=== PATIENT | female | born 1935 | race African-American/Black ===

== ENCOUNTER 2016-10-28 15:14 | Emergency (ER) | payer MEDICARE, BC ==
[~2016-10-28] VITALS: Ht 162.6 cm; Wt 80.0 kg
[~2016-10-28 15:14] MED LIST: ALLO300T2 PO; ASC250 PO; ATOR10TA69 PO; CYAN10009 PO; DIAZ5TAB4 PO; DOCU-138 PO; ERGO500043 PO; FERR-63 PO; FLUT1DIS3 IH; FLUTICASONE PROP NS; FURO80TA3 PO; HYDR-4094 PO; IRBE300T42 PO; ISOS60TA4 PO; METO5TAB69 PO; NITR0.4T3 SL; NITR12SP6 SL; OMEP20CA10 PO; POTA-9 PO; PRO AIR INH; RENAVITE PO; VERA240C2 PO; [UNRECOGNIZED DRUG - CODE] SQ
[2016-10-28 17:08] VITALS: BP 109/61
== END 2016-10-28 17:09 | disposition home or self-care (01) ==
LOC: ER 16:15
DX: M48.07 Spinal stenosis, lumbosacral region (principal); Z88.6 Allergy status to analgesic agent; Z79.899 Other long term (current) drug therapy; I11.0 Hypertensive heart disease with heart failure; I50.9 Heart failure, unspecified
CPT/HCPCS: 99284

== ENCOUNTER 2017-02-17 10:33 | Inpatient (IN) | payer MEDICARE, BC ==
[~2017-02-17] VITALS: Ht 167.6 cm; Wt 78.0 kg
[~2017-02-17 10:33] MED LIST changes: +ERGO500013 PO; -ERGO500043 PO; -NITR0.4T3 SL; +NITR0.4T49 SL
[2017-02-17 15:45] LABS: BASOPHILS % 0.8 % (0.0-2.0); EOSINOPHILS % 2.7 % (0.0-5.0); HEMATOCRIT. 30.1 % (36.0-48.0); LYMPHOCYTES % 17.9 % (20.0-50.0); MEAN CORPUSCULAR HEMOGLOBIN 22.4 pg (28.0-32.0); MEAN CORPUSCULAR VOLUME 74.8 fL (81.0-99.0); MEAN PLATELET VOLUME 9.3 fl (7.4-10.4); MONOCYTES % 14.9 % (2.0-8.0); NEUTROPHILS % 63.7 % (40.0-76.0); PLATELET 160 x1000/uL (130-400); RED BLOOD CELL COUNT 4.02 mill/uL (4.2-5.4); RED CELL DISTRIBUTION WIDTH 16.1 % (11.6-14.6)
[2017-02-17 15:47] LABS: CLARITY URINE CLEAR (CLEAR); COLOR URINE YELLOW (YELLOW); GLUCOSE URINE NEGATIVE (NEGATIVE); KETONES URINE NEGATIVE (NEGATIVE); LEUKOCYTE ESTERASE URINE 2+ (NEGATIVE); NITRITE URINE NEGATIVE (NEGATIVE); OCCULT BLOOD URINE NEGATIVE (NEGATIVE); PH URINE 5.5 (4.5-8.0); PROTEIN URINE 2+ (NEGATIVE); SPECIFIC GRAVITY URINE 1.017 (1.005-1.030); UROBILINOGEN URINE 0.2 E.U./dL (0.2-1.0)
[2017-02-17 16:02] LABS: *AMPHETAMINES SCREEN URINE NEGATIVE (NEGATIVE); *BARBITURATES SCREEN URINE NEGATIVE (NEGATIVE); *BENZODIAZEPINES SCREEN URINE PRESUMTIVE POSITIVE (NEGATIVE); *COCAINE SCREEN URINE NEGATIVE (NEGATIVE); CANNABINOID URINE SCREEN NEGATIVE (NEGATIVE); METHADONE URINE SCREEN NEGATIVE (NEGATIVE); OPIATES URINE SCREEN PRESUMTIVE POSITIVE (NEGATIVE); PHENCYCLIDINE URINE SCREEN NEGATIVE (NEGATIVE)
[2017-02-17 16:07] LABS: CARBON DIOXIDE 28 mEq/L (21-32); CHLORIDE 113 mEq/L (98-107); TROPONIN I 0.25 ng/mL (0.00-0.04)
[2017-02-17] MEDS ORDERED: SULFAMETHOXAZOLE/TRIMETHOPRIM 800/160MG TABLET PO ONE (18:30)
[2017-02-17 20:50] VITALS: BP 164/75
[2017-02-18] VITALS: BP 164/75
[2017-02-18 00:24] VITALS: BP 179/88
[2017-02-18 04:00] VITALS: BP 173/94
[2017-02-18 06:08] LABS: BASOPHILS % 0.8 % (0.0-2.0); EOSINOPHILS % 3.3 % (0.0-5.0); HEMATOCRIT. 29.6 % (36.0-48.0); HEMOGLOBIN. 8.9 g/dL (12.0-16.0); LYMPHOCYTES % 15.5 % (20.0-50.0); MEAN CORPUSCULAR HEMOGLOBIN 22.4 pg (28.0-32.0); MEAN CORPUSCULAR VOLUME 74.6 fL (81.0-99.0); MEAN PLATELET VOLUME 9.7 fl (7.4-10.4); MONOCYTES % 13.4 % (2.0-8.0); PLATELET 172 x1000/uL (130-400); RED BLOOD CELL COUNT 3.97 mill/uL (4.2-5.4)
[2017-02-18 06:40] LABS: TROPONIN I 0.16 ng/mL (0.00-0.04)
[2017-02-18] MEDS: OMEPRAZOLE 20MG CAPSULE EXTENDED RELEASE PO SCH (07:40)
[2017-02-18 07:57] LABS: VITAMIN B12 SERUM 958 pg/mL (211-911)
[2017-02-18 08:00] VITALS: BP 169/84
[2017-02-18] MEDS ORDERED: BUDESONIDE 0.5MG/2ML NEB HHN SCH (08:00)
[2017-02-18] MEDS ORDERED: ALBUTEROL (0.083%) 2.5MG/3ML NEB HHN SCH (08:00)
[2017-02-18] MEDS ORDERED: VERAPAMIL HCL 180MG ER TABLET PO SCH (09:00)
[2017-02-18] MEDS ORDERED: FLUTICASONE/VILANTEROL 200-25 BLST.W.DEV ORI SCH ×2 (09:00→13:00)
[2017-02-18] MEDS: FUROSEMIDE 40MG/4ML VIAL IVP SCH (09:49)
[2017-02-18] MEDS: LOSARTAN POTASSIUM 100 MG TABLET PO SCH (09:49)
[2017-02-18] MEDS: ISOSORBIDE MONONITRATE 60MG TABLET SR 24HR PO SCH (09:51)
[2017-02-18 12:00] VITALS: BP 143/76
[2017-02-18] MEDS ORDERED: NITROGLYCERIN 0.4MG TABLET SL SL PRN ×2 (13:00)
[2017-02-18] MEDS ORDERED: DOCUSATE SODIUM 100MG CAPSULE PO PRN (13:00)
[2017-02-18] MEDS ORDERED: LOSARTAN POTASSIUM 100 MG TABLET PO SCH (13:00)
[2017-02-18] MEDS ORDERED: ISOSORBIDE MONONITRATE 60MG TABLET SR 24HR PO SCH (13:00)
[2017-02-18] MEDS ORDERED: FUROSEMIDE 40MG/4ML VIAL IVP SCH (13:00)
[2017-02-18] MEDS ORDERED: OMEPRAZOLE 20MG CAPSULE EXTENDED RELEASE PO SCH (13:00)
[2017-02-18] MEDS ORDERED: ALBUTEROL 6.7GM HFA INHALER ORI PRN (13:00)
[2017-02-18 16:00] VITALS: BP 126/68
[2017-02-18] MEDS: FOLIC ACID/VITAMIN B COMP W-C TABLET PO SCH (18:01)
[2017-02-18] MEDS: ALLOPURINOL 100 MG TABLET PO SCH (18:01)
[2017-02-18] MEDS: VERAPAMIL HCL 180MG ER TABLET PO SCH (20:03)
[2017-02-18] MEDS: ATORVASTATIN CALCIUM 10MG TABLET PO SCH (20:03)
[2017-02-18] MEDS: HYDROCODONE/ACETAMINOPHEN 10/325MG TABLET PO PRN (22:25)
[2017-02-19] VITALS: BP 137/64
[2017-02-19] MEDS: ALBUTEROL (0.083%) 2.5MG/3ML NEB HHN SCH ×4 (02:05→20:38)
[2017-02-19 04:00] VITALS: BP 124/63
[2017-02-19] MEDS: OMEPRAZOLE 20MG CAPSULE EXTENDED RELEASE PO SCH (06:21)
[2017-02-19 06:43] LABS: BASOPHILS % 0.5 % (0.0-2.0); EOSINOPHILS % 3.4 % (0.0-5.0); HEMATOCRIT. 27.4 % (36.0-48.0); HEMOGLOBIN. 8.4 g/dL (12.0-16.0); MEAN CORPUSCULAR HEMOGLOBIN 22.7 pg (28.0-32.0); MEAN CORPUSCULAR VOLUME 74.5 fL (81.0-99.0); MEAN PLATELET VOLUME 9.8 fl (7.4-10.4); MONOCYTES % 13.1 % (2.0-8.0); PLATELET 155 x1000/uL (130-400); RED BLOOD CELL COUNT 3.68 mill/uL (4.2-5.4); RED CELL DISTRIBUTION WIDTH 16.1 % (11.6-14.6)
[2017-02-19 06:51] LABS: CREATINE KINASE MB FRACTION 0.5 ng/mL (0.5-3.6)
[2017-02-19 08:00] VITALS: BP 118/64
[2017-02-19] MEDS: LOSARTAN POTASSIUM 100 MG TABLET PO SCH (09:00)
[2017-02-19] MEDS ORDERED: VERAPAMIL HCL 180MG ER TABLET PO SCH (09:00)
[2017-02-19] MEDS: VERAPAMIL HCL 180MG ER TABLET PO SCH ×2 (09:00→20:16)
[2017-02-19] MEDS: ISOSORBIDE MONONITRATE 60MG TABLET SR 24HR PO SCH (09:00)
[2017-02-19] MEDS: FUROSEMIDE 40MG/4ML VIAL IVP SCH (09:00)
[2017-02-19] MEDS: FOLIC ACID/VITAMIN B COMP W-C TABLET PO SCH (10:36)
[2017-02-19] MEDS: ALLOPURINOL 100 MG TABLET PO SCH (10:36)
[2017-02-19 12:00] VITALS: BP 112/61
[2017-02-19] MEDS: HYDROCODONE/ACETAMINOPHEN 10/325MG TABLET PO PRN (13:34)
[2017-02-19 16:00] VITALS: BP 109/61
[2017-02-19 20:00] VITALS: BP 137/64
[2017-02-19] MEDS: ATORVASTATIN CALCIUM 10MG TABLET PO SCH (20:15)
[2017-02-20] VITALS: BP 131/60
[2017-02-20] MEDS: ALBUTEROL (0.083%) 2.5MG/3ML NEB HHN SCH ×4 (02:43→21:39)
[2017-02-20 04:00] VITALS: BP 146/73
[2017-02-20] MEDS: OMEPRAZOLE 20MG CAPSULE EXTENDED RELEASE PO SCH (06:21)
[2017-02-20 07:18] LABS: BASOPHILS % 0.5 % (0.0-2.0); EOSINOPHILS % 3.5 % (0.0-5.0); HEMATOCRIT. 28.5 % (36.0-48.0); HEMOGLOBIN. 8.7 g/dL (12.0-16.0); LYMPHOCYTES % 18.1 % (20.0-50.0); MEAN CORPUSCULAR HEMOGLOBIN 22.6 pg (28.0-32.0); MEAN CORPUSCULAR VOLUME 74.3 fL (81.0-99.0); MEAN PLATELET VOLUME 10.1 fl (7.4-10.4); MONOCYTES % 11.7 % (2.0-8.0); NEUTROPHILS % 66.2 % (40.0-76.0); PLATELET 153 x1000/uL (130-400); RED BLOOD CELL COUNT 3.84 mill/uL (4.2-5.4); RED CELL DISTRIBUTION WIDTH 16.3 % (11.6-14.6)
[2017-02-20 08:00] VITALS: BP 154/77
[2017-02-20] MEDS: ISOSORBIDE MONONITRATE 60MG TABLET SR 24HR PO SCH (09:00)
[2017-02-20] MEDS: LOSARTAN POTASSIUM 100 MG TABLET PO SCH (09:00)
[2017-02-20] MEDS: FOLIC ACID/VITAMIN B COMP W-C TABLET PO SCH (09:08)
[2017-02-20] MEDS: VERAPAMIL HCL 180MG ER TABLET PO SCH ×2 (09:09→21:32)
[2017-02-20] MEDS: ALLOPURINOL 100 MG TABLET PO SCH (09:16)
[2017-02-20] MEDS: FUROSEMIDE 40MG/4ML VIAL IVP SCH (09:21)
[2017-02-20] MEDS: HYDROCODONE/ACETAMINOPHEN 10/325MG TABLET PO PRN (11:56)
[2017-02-20 12:00] VITALS: BP 151/70
[2017-02-20 16:00] VITALS: BP 135/64
[2017-02-20] MEDS ORDERED: ALBUTEROL (0.083%) 2.5MG/3ML NEB HHN PRN (19:30)
[2017-02-20 20:00] VITALS: BP 143/61
[2017-02-20] MEDS ORDERED: EPOETIN ALFA 10000UNITS/ML VIAL SUBCUT SCH (21:00)
[2017-02-20] MEDS: ATORVASTATIN CALCIUM 10MG TABLET PO SCH (21:32)
[2017-02-21] VITALS: BP 131/73
[2017-02-21] MEDS: ALBUTEROL (0.083%) 2.5MG/3ML NEB HHN SCH ×4 (00:52→20:59)
[2017-02-21 04:00] VITALS: BP 124/73
[2017-02-21 07:19] LABS: BASOPHILS % 0.7 % (0.0-2.0); EOSINOPHILS % 4.3 % (0.0-5.0); HEMOGLOBIN 8.3 g/dL (12.0-16.0); HEMOGLOBIN. 8.3 g/dL (12.0-16.0); LYMPHOCYTES % 19.4 % (20.0-50.0); MEAN CORPUSCULAR HEMOGLOBIN 22.7 pg (28.0-32.0); MEAN CORPUSCULAR VOLUME 73.5 fL (81.0-99.0); MEAN PLATELET VOLUME 10.3 fl (7.4-10.4); NEUTROPHILS % 63.6 % (40.0-76.0); PLATELET 148 x1000/uL (130-400); RED BLOOD CELL COUNT 3.67 mill/uL (4.2-5.4); RED CELL DISTRIBUTION WIDTH 15.8 % (11.6-14.6)
[2017-02-21] MEDS: OMEPRAZOLE 20MG CAPSULE EXTENDED RELEASE PO SCH (07:34)
[2017-02-21 07:56] LABS: PHOSPHORUS 2.6 mg/dL (2.5-4.9)
[2017-02-21 08:00] VITALS: BP 141/68
[2017-02-21] MEDS: FUROSEMIDE 40MG/4ML VIAL IVP SCH (09:43)
[2017-02-21] MEDS: FOLIC ACID/VITAMIN B COMP W-C TABLET PO SCH (09:43)
[2017-02-21] MEDS: ALLOPURINOL 100 MG TABLET PO SCH (09:44)
[2017-02-21] MEDS: LOSARTAN POTASSIUM 100 MG TABLET PO SCH (09:44)
[2017-02-21] MEDS: ISOSORBIDE MONONITRATE 60MG TABLET SR 24HR PO SCH (09:44)
[2017-02-21] MEDS: VERAPAMIL HCL 180MG ER TABLET PO SCH ×2 (09:44→20:54)
[2017-02-21 12:00] VITALS: BP 124/55
[2017-02-21 16:00] VITALS: BP_SYST 124; BP_SYST 149; BP_DIAS 55; BP_DIAS 69
[2017-02-21] MEDS: CINACALCET HCL 30MG TABLET PO SCH (18:46)
[2017-02-21] MEDS: FERROUS SULFATE 325MG TABLET PO SCH (18:47)
[2017-02-21 20:00] VITALS: BP 138/73
[2017-02-21] MEDS: ATORVASTATIN CALCIUM 10MG TABLET PO SCH (20:54)
[2017-02-21] MEDS: METOPROLOL TARTRATE 25MG TABLET PO SCH (20:55)
[2017-02-21] MEDS: HYDROCODONE/ACETAMINOPHEN 10/325MG TABLET PO PRN (20:55)
[2017-02-21] MEDS ORDERED: TRIAMCINOLONE ACETONIDE 40MG/ML 1ML VIAL IJ NR (21:30)
[2017-02-21] MEDS ORDERED: LIDOCAINE HCL 1% 20ML VIAL (Pyxis) INJ INJ NR (21:30)
[2017-02-21] MEDS ORDERED: ETHYL CHLORIDE CAN TOP NR (21:30)
[2017-02-22] VITALS: BP 160/81
[2017-02-22] MEDS: ALBUTEROL (0.083%) 2.5MG/3ML NEB HHN SCH ×3 (01:03→13:56)
[2017-02-22 04:00] VITALS: BP 112/57
[2017-02-22 06:14] LABS: HEMATOCRIT 30.4 % (36.0-48.0); HEMOGLOBIN 9.2 g/dL (12.0-16.0); MEAN CORPUSCULAR HEMOGLOBIN 22.6 pg (28.0-32.0); MEAN CORPUSCULAR VOLUME 74.8 fL (81.0-99.0); PLATELET 159 x1000/uL (130-400); RED BLOOD CELL COUNT 4.06 mill/uL (4.2-5.4); RED CELL DISTRIBUTION WIDTH 16.3 % (11.6-14.6)
[2017-02-22] MEDS: OMEPRAZOLE 20MG CAPSULE EXTENDED RELEASE PO SCH (06:47)
[2017-02-22 07:22] LABS: 25-HYDROXY VITAMIN D3 11 ng/mL (.)
[2017-02-22 08:00] VITALS: BP 123/62
[2017-02-22] MEDS: FERROUS SULFATE 325MG TABLET PO SCH (10:19)
[2017-02-22] MEDS: FOLIC ACID/VITAMIN B COMP W-C TABLET PO SCH (10:20)
[2017-02-22] MEDS: ALLOPURINOL 100 MG TABLET PO SCH (10:20)
[2017-02-22] MEDS: LOSARTAN POTASSIUM 100 MG TABLET PO SCH (10:22)
[2017-02-22] MEDS: VERAPAMIL HCL 180MG ER TABLET PO SCH (10:23)
[2017-02-22] MEDS: ISOSORBIDE MONONITRATE 60MG TABLET SR 24HR PO SCH (10:24)
[2017-02-22] MEDS: METOPROLOL TARTRATE 25MG TABLET PO SCH (10:25)
[2017-02-22] MEDS: FUROSEMIDE 40MG/4ML VIAL IVP SCH (10:27)
[2017-02-22] MEDS: CINACALCET HCL 30MG TABLET PO SCH (10:33)
[2017-02-22 12:00] VITALS: BP 149/71
[2017-02-22 16:00] VITALS: BP 145/76
[2017-02-22 17:12] VITALS: BP 145/76
== END 2017-02-22 17:56 | DRG 291 ==
LOC: ER 10:53 → EDBEDREQ 18:21 → EDBEDREQSVC 18:21 → EDBEDREQTM 18:21 → 6EST 18:21 → ENRESERV 18:33
PROVIDERS: ADMIT Internal Medicine Critical Care Medicine; ATTEND Internal Medicine Critical Care Medicine
DX: I13.0 Hypertensive heart and chronic kidney disease with heart failure and stage 1 through stage 4 chronic kidney disease, or unspecified chronic kidney disease (principal); G82.50 Quadriplegia, unspecified; N17.0 Acute kidney failure with tubular necrosis; E87.0 Hyperosmolality and hypernatremia; N18.4 Chronic kidney disease, stage 4 (severe); I27.2 Other secondary pulmonary hypertension; I50.43 Acute on chronic combined systolic (congestive) and diastolic (congestive) heart failure; J45.901 Unspecified asthma with (acute) exacerbation; N39.0 Urinary tract infection, site not specified; J44.9 Chronic obstructive pulmonary disease, unspecified; E83.52 Hypercalcemia; E66.01 Morbid (severe) obesity due to excess calories; M48.07 Spinal stenosis, lumbosacral region; I43 Cardiomyopathy in diseases classified elsewhere; E86.0 Dehydration; R62.7 Adult failure to thrive; D50.9 Iron deficiency anemia, unspecified; M17.0 Bilateral primary osteoarthritis of knee; I25.10 Atherosclerotic heart disease of native coronary artery without angina pectoris; M10.9 Gout, unspecified; G89.29 Other chronic pain; M54.5 Low back pain; M47.892 Other spondylosis, cervical region; M47.897 Other spondylosis, lumbosacral region; D63.8 Anemia in other chronic diseases classified elsewhere; E78.5 Hyperlipidemia, unspecified; I87.2 Venous insufficiency (chronic) (peripheral); M48.02 Spinal stenosis, cervical region; I08.3 Combined rheumatic disorders of mitral, aortic and tricuspid valves; I08.1 Rheumatic disorders of both mitral and tricuspid valves; Z96.1 Presence of intraocular lens; W01.0XXA Fall on same level from slipping, tripping and stumbling without subsequent striking against object, initial encounter; Y92.009 Unspecified place in unspecified non-institutional (private) residence as the place of occurrence of the external cause; Z98.41 Cataract extraction status, right eye; Z98.42 Cataract extraction status, left eye; Z98.51 Tubal ligation status; Z90.710 Acquired absence of both cervix and uterus; Z68.27 Body mass index [BMI] 27.0-27.9, adult; Z87.891 Personal history of nicotine dependence; Z88.8 Allergy status to other drugs, medicaments and biological substances; Z88.6 Allergy status to analgesic agent; Z87.440 Personal history of urinary (tract) infections; R73.03 Prediabetes
CPT/HCPCS: 36415; 70450; 71010; 80048; 80053; 80061; 80305; 81001; 82306; 82550; 82553; 82607; 83036; 83540; 83550; 83880; 83970; 84100; 84484; 84550; 85025; 85027; 85651; 86140; 87040; 87086; 93005; 93306; 93970; 94640; 94664; 97163; 99285; A6261; C1893; J0885; J1940; J3301; J3490; J7611

== ENCOUNTER 2017-02-22 18:05 | Inpatient (IN) | payer MEDICARE, BC ==
[~2017-02-22] VITALS: Ht 167.6 cm; Wt 78.0 kg
[2017-02-22 20:00] VITALS: BP 102/60
[2017-02-22] MEDS ORDERED: ALBUTEROL (0.083%) 2.5MG/3ML NEB HHN PRN (20:30)
[2017-02-22] MEDS ORDERED: NITROGLYCERIN 0.4MG TABLET SL SL PRN (20:30)
[2017-02-22] MEDS ORDERED: DOCUSATE SODIUM 100MG CAPSULE PO SCH (20:30)
[2017-02-22] MEDS ORDERED: LIDOCAINE HCL 1% 20ML VIAL (Pyxis) INJ INFIL NR (20:30)
[2017-02-22] MEDS ORDERED: METHYLPREDNISOLONE ACETATE 40MG/ML VIAL IM NR (20:30)
[2017-02-22] MEDS: VERAPAMIL HCL 180MG ER TABLET PO SCH (22:25)
[2017-02-22] MEDS: ATORVASTATIN CALCIUM 10MG TABLET PO SCH (22:27)
[2017-02-22] MEDS: METOPROLOL TARTRATE 25MG TABLET PO SCH (22:27)
[2017-02-23] MEDS: ALBUTEROL (0.083%) 2.5MG/3ML NEB HHN SCH ×4 (00:49→20:39)
[2017-02-23] MEDS: OMEPRAZOLE 20MG CAPSULE EXTENDED RELEASE PO SCH (06:44)
[2017-02-23] MEDS: FOLIC ACID/VITAMIN B COMP W-C TABLET PO SCH (08:25)
[2017-02-23] MEDS: DOCUSATE SODIUM 100MG CAPSULE PO SCH (08:25)
[2017-02-23] MEDS: FERROUS SULFATE 325MG TABLET PO SCH ×2 (08:25→17:17)
[2017-02-23] MEDS: FUROSEMIDE 40MG TABLET PO SCH (08:26)
[2017-02-23] MEDS: ISOSORBIDE MONONITRATE 60MG TABLET SR 24HR PO SCH (08:26)
[2017-02-23] MEDS: ALLOPURINOL 100 MG TABLET PO SCH (08:26)
[2017-02-23 08:27] VITALS: BP 142/74
[2017-02-23] MEDS: VERAPAMIL HCL 180MG ER TABLET PO SCH ×2 (08:27→21:18)
[2017-02-23] MEDS: CINACALCET HCL 30MG TABLET PO SCH ×2 (08:27→08:35)
[2017-02-23] MEDS: LOSARTAN POTASSIUM 100 MG TABLET PO SCH (08:27)
[2017-02-23] MEDS: METOPROLOL TARTRATE 25MG TABLET PO SCH ×2 (08:28→21:18)
[2017-02-23] MEDS: HYDROCODONE/ACETAMINOPHEN 10/325MG TABLET PO PRN (14:08)
[2017-02-23 20:00] VITALS: BP 112/63
[2017-02-23] MEDS: ATORVASTATIN CALCIUM 10MG TABLET PO SCH (21:16)
[2017-02-24] MEDS: ALBUTEROL (0.083%) 2.5MG/3ML NEB HHN SCH ×4 (02:04→21:07)
[2017-02-24] MEDS: OMEPRAZOLE 20MG CAPSULE EXTENDED RELEASE PO SCH (06:16)
[2017-02-24] MEDS: HYDROCODONE/ACETAMINOPHEN 10/325MG TABLET PO PRN (06:17)
[2017-02-24 07:02] VITALS: BP 141/69
[2017-02-24] MEDS: ALLOPURINOL 100 MG TABLET PO SCH (08:28)
[2017-02-24] MEDS: FUROSEMIDE 40MG TABLET PO SCH (08:28)
[2017-02-24] MEDS: CINACALCET HCL 30MG TABLET PO SCH (08:28)
[2017-02-24] MEDS: FERROUS SULFATE 325MG TABLET PO SCH ×2 (08:28→17:46)
[2017-02-24] MEDS: FOLIC ACID/VITAMIN B COMP W-C TABLET PO SCH (08:28)
[2017-02-24] MEDS: ISOSORBIDE MONONITRATE 60MG TABLET SR 24HR PO SCH (08:28)
[2017-02-24] MEDS: DOCUSATE SODIUM 100MG CAPSULE PO SCH (08:28)
[2017-02-24] MEDS: METOPROLOL TARTRATE 25MG TABLET PO SCH ×2 (08:29→21:14)
[2017-02-24] MEDS: LOSARTAN POTASSIUM 100 MG TABLET PO SCH (08:29)
[2017-02-24] MEDS: VERAPAMIL HCL 180MG ER TABLET PO SCH ×2 (08:30→21:14)
[2017-02-24 19:53] VITALS: BP 143/65
[2017-02-24] MEDS: ATORVASTATIN CALCIUM 10MG TABLET PO SCH (21:13)
[2017-02-25] MEDS: ALBUTEROL (0.083%) 2.5MG/3ML NEB HHN SCH ×4 (01:10→21:38)
[2017-02-25 06:44] LABS: BASOPHILS % 0.6 % (0.0-2.0); EOSINOPHILS % 1.1 % (0.0-5.0); HEMATOCRIT. 27.6 % (36.0-48.0); HEMOGLOBIN. 8.6 g/dL (12.0-16.0); LYMPHOCYTES % 18.2 % (20.0-50.0); MEAN CORPUSCULAR HEMOGLOBIN 22.9 pg (28.0-32.0); MEAN CORPUSCULAR VOLUME 73.4 fL (81.0-99.0); MEAN PLATELET VOLUME 10.3 fl (7.4-10.4); MONOCYTES % 9.1 % (2.0-8.0); PLATELET 186 x1000/uL (130-400); RED BLOOD CELL COUNT 3.76 mill/uL (4.2-5.4); RED CELL DISTRIBUTION WIDTH 16.1 % (11.6-14.6)
[2017-02-25 08:00] VITALS: BP 130/64
[2017-02-25] MEDS: FOLIC ACID/VITAMIN B COMP W-C TABLET PO SCH (10:08)
[2017-02-25] MEDS: CINACALCET HCL 30MG TABLET PO SCH (10:08)
[2017-02-25] MEDS: FERROUS SULFATE 325MG TABLET PO SCH ×2 (10:08→17:21)
[2017-02-25] MEDS: ISOSORBIDE MONONITRATE 60MG TABLET SR 24HR PO SCH (10:09)
[2017-02-25] MEDS: VERAPAMIL HCL 180MG ER TABLET PO SCH ×2 (10:10→21:00)
[2017-02-25] MEDS: METOPROLOL TARTRATE 25MG TABLET PO SCH ×2 (10:10→21:00)
[2017-02-25] MEDS: ALLOPURINOL 100 MG TABLET PO SCH (10:10)
[2017-02-25] MEDS: FUROSEMIDE 40MG TABLET PO SCH (10:11)
[2017-02-25] MEDS: FAMOTIDINE 20MG TABLET PO SCH (10:12)
[2017-02-25] MEDS: LOSARTAN POTASSIUM 100 MG TABLET PO SCH (10:12)
[2017-02-25] MEDS: DOCUSATE SODIUM 100MG CAPSULE PO SCH (10:12)
[2017-02-25 19:48] VITALS: BP 108/51
[2017-02-25] MEDS: ATORVASTATIN CALCIUM 10MG TABLET PO SCH (22:04)
[2017-02-26] MEDS: ALBUTEROL (0.083%) 2.5MG/3ML NEB HHN SCH ×4 (03:20→21:51)
[2017-02-26] MEDS: HYDROCODONE/ACETAMINOPHEN 10/325MG TABLET PO PRN ×2 (06:13→12:08)
[2017-02-26 08:00] VITALS: BP 165/85
[2017-02-26] MEDS: DOCUSATE SODIUM 100MG CAPSULE PO SCH (08:36)
[2017-02-26] MEDS: FOLIC ACID/VITAMIN B COMP W-C TABLET PO SCH (08:36)
[2017-02-26] MEDS: FERROUS SULFATE 325MG TABLET PO SCH ×2 (08:36→17:06)
[2017-02-26] MEDS: ALLOPURINOL 100 MG TABLET PO SCH (08:36)
[2017-02-26] MEDS: FAMOTIDINE 20MG TABLET PO SCH (08:37)
[2017-02-26] MEDS: LOSARTAN POTASSIUM 100 MG TABLET PO SCH (08:37)
[2017-02-26] MEDS: ISOSORBIDE MONONITRATE 60MG TABLET SR 24HR PO SCH (08:37)
[2017-02-26] MEDS: FUROSEMIDE 40MG TABLET PO SCH (08:37)
[2017-02-26] MEDS: CINACALCET HCL 30MG TABLET PO SCH (08:37)
[2017-02-26] MEDS: METOPROLOL TARTRATE 25MG TABLET PO SCH ×2 (08:38→22:58)
[2017-02-26] MEDS: VERAPAMIL HCL 180MG ER TABLET PO SCH ×2 (08:43→22:57)
[2017-02-26 10:55] VITALS: BP 113/65
[2017-02-26] MEDS ORDERED: NON FORMULARY PATIENT HOME MED EA XX SCH (15:00)
[2017-02-26] MEDS ORDERED: DUREZOL 0.05% EYE DROPS OP SCH (17:00)
[2017-02-26 20:00] VITALS: BP 121/64
[2017-02-26] MEDS ORDERED: EPOETIN ALFA 10000UNITS/ML VIAL SUBCUT NR (22:00)
[2017-02-26] MEDS ORDERED: EPOETIN ALFA 4000UNITS/ML VIAL SUBCUT NR (22:00)
[2017-02-26] MEDS: ATORVASTATIN CALCIUM 10MG TABLET PO SCH (22:58)
[2017-02-27] MEDS: ALBUTEROL (0.083%) 2.5MG/3ML NEB HHN SCH ×3 (02:00→20:55)
[2017-02-27 08:00] VITALS: BP 148/69
[2017-02-27] MEDS: VERAPAMIL HCL 180MG ER TABLET PO SCH ×2 (08:24→23:09)
[2017-02-27] MEDS: CINACALCET HCL 30MG TABLET PO SCH (08:25)
[2017-02-27] MEDS: FUROSEMIDE 40MG TABLET PO SCH (08:25)
[2017-02-27] MEDS: FAMOTIDINE 20MG TABLET PO SCH (08:25)
[2017-02-27] MEDS: METOPROLOL TARTRATE 25MG TABLET PO SCH ×2 (08:25→23:10)
[2017-02-27] MEDS: FERROUS SULFATE 325MG TABLET PO SCH ×2 (08:26→16:57)
[2017-02-27] MEDS: DOCUSATE SODIUM 100MG CAPSULE PO SCH (08:26)
[2017-02-27] MEDS: FOLIC ACID/VITAMIN B COMP W-C TABLET PO SCH (08:26)
[2017-02-27] MEDS: ALLOPURINOL 100 MG TABLET PO SCH (08:26)
[2017-02-27] MEDS: ISOSORBIDE MONONITRATE 60MG TABLET SR 24HR PO SCH (08:26)
[2017-02-27] MEDS: LOSARTAN POTASSIUM 100 MG TABLET PO SCH (08:26)
[2017-02-27] MEDS: HYDROCODONE/ACETAMINOPHEN 10/325MG TABLET PO PRN (08:36)
[2017-02-27 20:00] VITALS: BP 132/59
[2017-02-27] MEDS: ATORVASTATIN CALCIUM 10MG TABLET PO SCH (23:09)
[2017-02-28] MEDS: ALBUTEROL (0.083%) 2.5MG/3ML NEB HHN SCH ×4 (02:08→20:10)
[2017-02-28 07:50] LABS: HEMOGLOBIN 8.3 g/dL (12.0-16.0); MEAN CORPUSCULAR HEMOGLOBIN 22.9 pg (28.0-32.0); MEAN CORPUSCULAR VOLUME 74.4 fL (81.0-99.0); PLATELET 172 x1000/uL (130-400); RED BLOOD CELL COUNT 3.63 mill/uL (4.2-5.4); RED CELL DISTRIBUTION WIDTH 16.1 % (11.6-14.6)
[2017-02-28 08:00] VITALS: BP 139/56
[2017-02-28] MEDS ORDERED: HYDROCODONE/ACETAMINOPHEN 10/325MG TABLET PO PRN (08:45)
[2017-02-28] MEDS: FUROSEMIDE 40MG TABLET PO SCH (09:42)
[2017-02-28] MEDS: ISOSORBIDE MONONITRATE 60MG TABLET SR 24HR PO SCH (09:42)
[2017-02-28] MEDS: FERROUS SULFATE 325MG TABLET PO SCH ×2 (09:43→17:07)
[2017-02-28] MEDS: FOLIC ACID/VITAMIN B COMP W-C TABLET PO SCH (09:43)
[2017-02-28] MEDS: ALLOPURINOL 100 MG TABLET PO SCH (09:43)
[2017-02-28] MEDS: CINACALCET HCL 30MG TABLET PO SCH (09:43)
[2017-02-28] MEDS: VERAPAMIL HCL 180MG ER TABLET PO SCH ×2 (09:44→21:59)
[2017-02-28] MEDS: DOCUSATE SODIUM 100MG CAPSULE PO SCH (09:44)
[2017-02-28] MEDS: LOSARTAN POTASSIUM 100 MG TABLET PO SCH (09:44)
[2017-02-28] MEDS: FAMOTIDINE 20MG TABLET PO SCH (09:44)
[2017-02-28] MEDS: METOPROLOL TARTRATE 25MG TABLET PO SCH ×2 (09:44→22:00)
[2017-02-28] MEDS: BISACODYL 5MG TABLET PO PRN (17:09)
[2017-02-28 20:00] VITALS: BP 159/72
[2017-02-28] MEDS: ATORVASTATIN CALCIUM 10MG TABLET PO SCH (21:59)
[2017-03-01] MEDS: ALBUTEROL (0.083%) 2.5MG/3ML NEB HHN SCH ×4 (01:57→22:02)
[2017-03-01 08:00] VITALS: BP 151/68
[2017-03-01] MEDS: FERROUS SULFATE 325MG TABLET PO SCH ×2 (08:15→18:10)
[2017-03-01] MEDS: FAMOTIDINE 20MG TABLET PO SCH (08:15)
[2017-03-01] MEDS: CINACALCET HCL 30MG TABLET PO SCH (08:15)
[2017-03-01] MEDS: ALLOPURINOL 100 MG TABLET PO SCH (08:16)
[2017-03-01] MEDS: METOPROLOL TARTRATE 25MG TABLET PO SCH ×2 (08:16→21:31)
[2017-03-01] MEDS: ISOSORBIDE MONONITRATE 60MG TABLET SR 24HR PO SCH (08:17)
[2017-03-01] MEDS: FOLIC ACID/VITAMIN B COMP W-C TABLET PO SCH (08:17)
[2017-03-01] MEDS: LOSARTAN POTASSIUM 100 MG TABLET PO SCH (08:17)
[2017-03-01] MEDS: DOCUSATE SODIUM 100MG CAPSULE PO SCH (08:17)
[2017-03-01] MEDS: VERAPAMIL HCL 180MG ER TABLET PO SCH (08:18)
[2017-03-01] MEDS: HYDROCODONE/ACETAMINOPHEN 10/325MG TABLET PO PRN (08:47)
[2017-03-01] MEDS ORDERED: FUROSEMIDE 80MG TABLET PO SCH (09:00)
[2017-03-01] MEDS ORDERED: FUROSEMIDE 40MG TABLET PO SCH (10:25)
[2017-03-01] MEDS: FUROSEMIDE 40MG TABLET PO SCH (10:37)
[2017-03-01] MEDS ORDERED: LIDOCAINE HCL 1% 20ML VIAL (Pyxis) INJ INFIL NR (16:30)
[2017-03-01] MEDS ORDERED: METHYLPREDNISOLONE ACETATE 40MG/ML VIAL IM NR (16:30)
[2017-03-01 20:00] VITALS: BP 120/51
[2017-03-01] MEDS: ATORVASTATIN CALCIUM 10MG TABLET PO SCH (21:27)
[2017-03-01] MEDS: VERAPAMIL HCL 240MG SR TABLET PO SCH (21:31)
[2017-03-02] MEDS: ALBUTEROL (0.083%) 2.5MG/3ML NEB HHN SCH ×4 (03:15→20:00)
[2017-03-02 07:15] LABS: BASOPHILS % 0.4 % (0.0-2.0); EOSINOPHILS % 0.3 % (0.0-5.0); HEMOGLOBIN. 8.3 g/dL (12.0-16.0); LYMPHOCYTES % 11.1 % (20.0-50.0); MEAN CORPUSCULAR HEMOGLOBIN 22.8 pg (28.0-32.0); MEAN CORPUSCULAR VOLUME 74.6 fL (81.0-99.0); MONOCYTES % 7.1 % (2.0-8.0); NEUTROPHILS % 81.1 % (40.0-76.0); PLATELET 173 x1000/uL (130-400); RED BLOOD CELL COUNT 3.63 mill/uL (4.2-5.4); RED CELL DISTRIBUTION WIDTH 16.6 % (11.6-14.6)
[2017-03-02] MEDS: HYDROCODONE/ACETAMINOPHEN 10/325MG TABLET PO PRN (07:47)
[2017-03-02 07:49] LABS: PHOSPHORUS 2.6 mg/dL (2.5-4.9)
[2017-03-02 08:00] VITALS: BP 137/65
[2017-03-02] MEDS: DOCUSATE SODIUM 100MG CAPSULE PO SCH (08:17)
[2017-03-02] MEDS: ALLOPURINOL 100 MG TABLET PO SCH (08:18)
[2017-03-02] MEDS: FERROUS SULFATE 325MG TABLET PO SCH ×2 (08:19→16:53)
[2017-03-02] MEDS: FUROSEMIDE 40MG TABLET PO SCH (08:19)
[2017-03-02] MEDS: FOLIC ACID/VITAMIN B COMP W-C TABLET PO SCH (08:20)
[2017-03-02] MEDS: FAMOTIDINE 20MG TABLET PO SCH (08:20)
[2017-03-02] MEDS: VERAPAMIL HCL 240MG SR TABLET PO SCH ×2 (08:21→21:00)
[2017-03-02] MEDS: METOPROLOL TARTRATE 25MG TABLET PO SCH ×2 (08:22→21:00)
[2017-03-02] MEDS: ISOSORBIDE MONONITRATE 60MG TABLET SR 24HR PO SCH (08:22)
[2017-03-02] MEDS: CINACALCET HCL 30MG TABLET PO SCH (08:23)
[2017-03-02] MEDS: LOSARTAN POTASSIUM 100 MG TABLET PO SCH (08:23)
[2017-03-02 20:00] VITALS: BP 98/40
[2017-03-02] MEDS: ATORVASTATIN CALCIUM 10MG TABLET PO SCH (21:35)
[2017-03-03] MEDS: ALBUTEROL (0.083%) 2.5MG/3ML NEB HHN SCH ×4 (02:20→20:52)
[2017-03-03 08:00] VITALS: BP 138/63
[2017-03-03] MEDS: BISACODYL 5MG TABLET PO PRN (08:29)
[2017-03-03] MEDS: ALLOPURINOL 100 MG TABLET PO SCH (08:29)
[2017-03-03] MEDS: METOPROLOL TARTRATE 25MG TABLET PO SCH ×2 (08:30→21:23)
[2017-03-03] MEDS: CINACALCET HCL 30MG TABLET PO SCH (08:30)
[2017-03-03] MEDS: FAMOTIDINE 20MG TABLET PO SCH (08:30)
[2017-03-03] MEDS: VERAPAMIL HCL 240MG SR TABLET PO SCH ×2 (08:30→21:23)
[2017-03-03] MEDS: LOSARTAN POTASSIUM 100 MG TABLET PO SCH (08:30)
[2017-03-03] MEDS: ISOSORBIDE MONONITRATE 60MG TABLET SR 24HR PO SCH (08:30)
[2017-03-03] MEDS: DOCUSATE SODIUM 100MG CAPSULE PO SCH (08:30)
[2017-03-03] MEDS: FOLIC ACID/VITAMIN B COMP W-C TABLET PO SCH (08:31)
[2017-03-03] MEDS: FERROUS SULFATE 325MG TABLET PO SCH ×2 (08:31→16:44)
[2017-03-03] MEDS: FUROSEMIDE 40MG TABLET PO SCH (08:31)
[2017-03-03] MEDS: HYDROCODONE/ACETAMINOPHEN 10/325MG TABLET PO PRN (14:03)
[2017-03-03 20:00] VITALS: BP 117/50
[2017-03-03] MEDS: ATORVASTATIN CALCIUM 10MG TABLET PO SCH (21:23)
[2017-03-04] MEDS: ALBUTEROL (0.083%) 2.5MG/3ML NEB HHN SCH ×4 (01:49→20:20)
[2017-03-04 08:00] VITALS: BP 136/60
[2017-03-04] MEDS: FERROUS SULFATE 325MG TABLET PO SCH ×2 (08:34→16:12)
[2017-03-04] MEDS: FOLIC ACID/VITAMIN B COMP W-C TABLET PO SCH (08:34)
[2017-03-04] MEDS: FUROSEMIDE 40MG TABLET PO SCH (08:34)
[2017-03-04] MEDS: ALLOPURINOL 100 MG TABLET PO SCH (08:34)
[2017-03-04] MEDS: DOCUSATE SODIUM 100MG CAPSULE PO SCH (08:34)
[2017-03-04] MEDS: CINACALCET HCL 30MG TABLET PO SCH (08:34)
[2017-03-04] MEDS: FAMOTIDINE 20MG TABLET PO SCH (08:34)
[2017-03-04] MEDS: LOSARTAN POTASSIUM 100 MG TABLET PO SCH (08:34)
[2017-03-04] MEDS: VERAPAMIL HCL 240MG SR TABLET PO SCH ×2 (08:35→21:22)
[2017-03-04] MEDS: METOPROLOL TARTRATE 25MG TABLET PO SCH ×2 (08:37→21:00)
[2017-03-04] MEDS: ISOSORBIDE MONONITRATE 60MG TABLET SR 24HR PO SCH (08:37)
[2017-03-04 20:00] VITALS: BP 122/51
[2017-03-04] MEDS: ATORVASTATIN CALCIUM 10MG TABLET PO SCH (21:21)
[2017-03-05] MEDS: ALBUTEROL (0.083%) 2.5MG/3ML NEB HHN SCH ×4 (02:22→21:34)
[2017-03-05 07:15] LABS: BASOPHILS % 0.7 % (0.0-2.0); EOSINOPHILS % 1.4 % (0.0-5.0); MEAN CORPUSCULAR HEMOGLOBIN 23.1 pg (28.0-32.0); MEAN CORPUSCULAR VOLUME 74.9 fL (81.0-99.0); MEAN PLATELET VOLUME 9.9 fl (7.4-10.4); MONOCYTES % 10.7 % (2.0-8.0); NEUTROPHILS % 68.2 % (40.0-76.0); PLATELET 164 x1000/uL (130-400); RED BLOOD CELL COUNT 3.47 mill/uL (4.2-5.4); RED CELL DISTRIBUTION WIDTH 16.4 % (11.6-14.6)
[2017-03-05 07:43] LABS: CARBON DIOXIDE 26 mEq/L (21-32); CHLORIDE 108 mEq/L (98-107)
[2017-03-05] MEDS: HYDROCODONE/ACETAMINOPHEN 10/325MG TABLET PO PRN (07:59)
[2017-03-05 08:00] VITALS: BP 131/54
[2017-03-05] MEDS: VERAPAMIL HCL 240MG SR TABLET PO SCH ×2 (08:58→22:10)
[2017-03-05] MEDS: ALLOPURINOL 100 MG TABLET PO SCH (08:59)
[2017-03-05] MEDS: FERROUS SULFATE 325MG TABLET PO SCH ×2 (08:59→17:11)
[2017-03-05] MEDS: CINACALCET HCL 30MG TABLET PO SCH (08:59)
[2017-03-05] MEDS: DOCUSATE SODIUM 100MG CAPSULE PO SCH (08:59)
[2017-03-05] MEDS: FUROSEMIDE 40MG TABLET PO SCH (08:59)
[2017-03-05] MEDS: LOSARTAN POTASSIUM 100 MG TABLET PO SCH (09:00)
[2017-03-05] MEDS: METOPROLOL TARTRATE 25MG TABLET PO SCH ×2 (09:00→22:11)
[2017-03-05] MEDS: FOLIC ACID/VITAMIN B COMP W-C TABLET PO SCH (09:00)
[2017-03-05] MEDS: ISOSORBIDE MONONITRATE 60MG TABLET SR 24HR PO SCH (09:02)
[2017-03-05] MEDS: FAMOTIDINE 20MG TABLET PO SCH (09:05)
[2017-03-05 19:00] VITALS: BP 147/60
[2017-03-05] MEDS: ATORVASTATIN CALCIUM 10MG TABLET PO SCH (22:10)
[2017-03-06] MEDS: ALBUTEROL (0.083%) 2.5MG/3ML NEB HHN SCH ×2 (02:35→09:04)
[2017-03-06 07:00] VITALS: BP 119/53
[2017-03-06 09:30] VITALS: BP 141/47
[2017-03-06] MEDS: VERAPAMIL HCL 240MG SR TABLET PO SCH (09:47)
[2017-03-06] MEDS: FAMOTIDINE 20MG TABLET PO SCH (09:48)
[2017-03-06] MEDS: ALLOPURINOL 100 MG TABLET PO SCH (09:48)
[2017-03-06] MEDS: METOPROLOL TARTRATE 25MG TABLET PO SCH (09:49)
[2017-03-06] MEDS: ISOSORBIDE MONONITRATE 60MG TABLET SR 24HR PO SCH (09:49)
[2017-03-06] MEDS: FOLIC ACID/VITAMIN B COMP W-C TABLET PO SCH (09:49)
[2017-03-06] MEDS: LOSARTAN POTASSIUM 100 MG TABLET PO SCH (09:49)
[2017-03-06] MEDS: DOCUSATE SODIUM 100MG CAPSULE PO SCH (09:49)
[2017-03-06] MEDS: FUROSEMIDE 40MG TABLET PO SCH (09:50)
[2017-03-06] MEDS: CINACALCET HCL 30MG TABLET PO SCH (09:50)
[2017-03-06] MEDS: FERROUS SULFATE 325MG TABLET PO SCH (09:50)
[2017-03-06] MEDS: HYDROCODONE/ACETAMINOPHEN 10/325MG TABLET PO PRN (11:06)
[2017-03-06 12:00] VITALS: BP 161/68
[2017-03-06 12:22] VITALS: BP 161/68
== END 2017-03-06 14:26 | disposition home health service (06) | DRG 552 ==
PROVIDERS: ADMIT Psychiatry & Neurology Neurology; ATTEND Internal Medicine Pulmonary Disease
DX: M48.07 Spinal stenosis, lumbosacral region (principal); N18.4 Chronic kidney disease, stage 4 (severe); I27.2 Other secondary pulmonary hypertension; I13.0 Hypertensive heart and chronic kidney disease with heart failure and stage 1 through stage 4 chronic kidney disease, or unspecified chronic kidney disease; I50.32 Chronic diastolic (congestive) heart failure; J44.9 Chronic obstructive pulmonary disease, unspecified; J45.901 Unspecified asthma with (acute) exacerbation; N25.81 Secondary hyperparathyroidism of renal origin; M48.02 Spinal stenosis, cervical region; I25.9 Chronic ischemic heart disease, unspecified; G89.29 Other chronic pain; M10.9 Gout, unspecified; M25.551 Pain in right hip; M17.0 Bilateral primary osteoarthritis of knee; D63.8 Anemia in other chronic diseases classified elsewhere; F06.8 Other specified mental disorders due to known physiological condition; I25.10 Atherosclerotic heart disease of native coronary artery without angina pectoris; R26.89 Other abnormalities of gait and mobility; M47.897 Other spondylosis, lumbosacral region; I34.0 Nonrheumatic mitral (valve) insufficiency; E78.5 Hyperlipidemia, unspecified; I35.0 Nonrheumatic aortic (valve) stenosis; F06.31 Mood disorder due to known physiological condition with depressive features; Z79.899 Other long term (current) drug therapy; Z98.49 Cataract extraction status, unspecified eye; Z88.6 Allergy status to analgesic agent; Z88.8 Allergy status to other drugs, medicaments and biological substances
CPT/HCPCS: 36415; 80048; 80053; 83735; 84100; 84550; 85025; 85027; 94640; 94664; 97110; 97116; 97162; 97167; 97530; 97535; J0885; J1030; J3490; J7611

== ENCOUNTER → 2017-08-02 | Day surgery (SDC) | payer MEDICARE, BC | END | disposition home or self-care (01) | LOC: RAD 09:55 | PROVIDERS: ATTEND Internal Medicine Pulmonary Disease | DX: N63.10 Unspecified lump in the right breast, unspecified quadrant (principal); Z88.0 Allergy status to penicillin | CPT/HCPCS: 76641 ==

== ENCOUNTER 2017-09-12 12:48 | Inpatient (IN) | payer MEDICARE, BC ==
[~2017-09-12] VITALS: Ht 162.6 cm; Wt 89.0 kg
[2017-09-12] MEDS ORDERED: SODIUM CHLORIDE 0.9% 500 ML IV ONE (14:32)
[2017-09-12 14:57] LABS: BASOPHILS % 1.2 % (0.0-2.0); EOSINOPHILS % 1.2 % (0.0-5.0); HEMOGLOBIN. 10.4 g/dL (12.0-16.0); MEAN CORPUSCULAR HEMOGLOBIN 22.1 pg (28.0-32.0); MEAN CORPUSCULAR VOLUME 76.2 fL (81.0-99.0); MEAN PLATELET VOLUME 10.7 fl (7.4-10.4); MONOCYTES % 9.3 % (2.0-8.0); NEUTROPHILS % 55.3 % (40.0-76.0); PLATELET 194 x1000/uL (130-400); RED BLOOD CELL COUNT 4.73 mill/uL (4.2-5.4); RED CELL DISTRIBUTION WIDTH 18.1 % (11.6-14.6)
[2017-09-12 15:03] LABS: INR 1.1; PROTHROMBIN TIME 11.8 sec (9.4-11.6)
[2017-09-12 15:06] LABS: CHLORIDE 104 mEq/L (98-107)
[2017-09-12] MEDS ORDERED: OXYCODONE HCL/ACETAMINOPHEN 5/325MG TABLET PO ONE (15:30)
[2017-09-12 16:01] LABS: T4 FREE 0.86 ng/dL (0.76-1.46)
[2017-09-12 20:35] VITALS: BP 119/84
[2017-09-13 00:09] VITALS: BP 109/69
[2017-09-13] MEDS ORDERED: HYDROCODONE/ACETAMINOPHEN 10/325MG TABLET PO PRN (00:45)
[2017-09-13 04:19] VITALS: BP 124/84
[2017-09-13] MEDS: OMEPRAZOLE 20MG CAPSULE EXTENDED RELEASE PO SCH (06:37)
[2017-09-13 08:24] LABS: CREATINE KINASE MB FRACTION 1.6 ng/mL (0.5-3.6)
[2017-09-13] MEDS: FOLIC ACID/VITAMIN B COMP W-C TABLET PO SCH (08:41)
[2017-09-13] MEDS: DIAZEPAM 5 MG TABLET PO SCH ×2 (08:42→17:27)
[2017-09-13] MEDS: FLUTICASONE PROPIONATE 50MCG/SPRAY BOTTLE BOTHNSTRLS SCH (08:42)
[2017-09-13] MEDS: FERROUS SULFATE 325MG TABLET PO SCH ×2 (08:42→17:27)
[2017-09-13] MEDS: ASCORBIC ACID 250 MG TABLET PO SCH (08:43)
[2017-09-13] MEDS: ALLOPURINOL 100 MG TABLET PO SCH (08:43)
[2017-09-13] MEDS: POTASSIUM CHLORIDE 10MEQ TABLET SR PO SCH (08:43)
[2017-09-13] MEDS: ERGOCALCIFEROL 50000UNITS CAPSULE PO SCH (08:43)
[2017-09-13] MEDS: CYANOCOBALAMIN 1000MCG TABLET PO SCH (08:44)
[2017-09-13] MEDS: FUROSEMIDE 80MG TABLET PO SCH (08:44)
[2017-09-13 08:49] VITALS: BP 107/80
[2017-09-13] MEDS ORDERED: VERAPAMIL HCL 120MG TABLET PO SCH (09:00)
[2017-09-13] MEDS ORDERED: ISOSORBIDE MONONITRATE 60MG TABLET SR 24HR PO SCH (09:00)
[2017-09-13] MEDS ORDERED: RENAVITE PO SCH (09:00)
[2017-09-13] MEDS: DOCUSATE SODIUM 100MG CAPSULE PO PRN (09:07)
[2017-09-13] MEDS ORDERED: DILTIAZEM HCL 5MG/ML 5ML VIAL IV PRN (10:30)
[2017-09-13] MEDS: FLUTICASONE/VILANTEROL 200-25 BLST.W.DEV ORI SCH (10:43)
[2017-09-13] MEDS: METOPROLOL TARTRATE 5MG/5ML VIAL IV PRN ×2 (11:17→19:16)
[2017-09-13 12:45] VITALS: BP 115/71
[2017-09-13] MEDS: AMIODARONE HCL 200 MG TABLET PO SCH ×2 (13:15→21:09)
[2017-09-13 15:47] LABS: CREATINE KINASE MB FRACTION 1.7 ng/mL (0.5-3.6)
[2017-09-13 16:35] VITALS: BP 113/82
[2017-09-13 19:59] VITALS: BP 95/62
[2017-09-13] MEDS: VERAPAMIL HCL 240MG SR TABLET PO SCH (21:00)
[2017-09-13] MEDS: ATORVASTATIN CALCIUM 10MG TABLET PO SCH (21:43)
[2017-09-13 23:03] LABS: CREATINE KINASE MB FRACTION 1.7 ng/mL (0.5-3.6)
[2017-09-14] VITALS (11 sets, daily range): BP systolic 84–128; BP diastolic 47–86
[2017-09-14] MEDS: AMIODARONE HCL 200 MG TABLET PO SCH ×3 (06:39→21:00)
[2017-09-14] MEDS: OMEPRAZOLE 20MG CAPSULE EXTENDED RELEASE PO SCH (07:48)
[2017-09-14] MEDS: FERROUS SULFATE 325MG TABLET PO SCH ×2 (08:39→16:59)
[2017-09-14] MEDS: FLUTICASONE PROPIONATE 50MCG/SPRAY BOTTLE BOTHNSTRLS SCH (08:39)
[2017-09-14] MEDS: FLUTICASONE/VILANTEROL 200-25 BLST.W.DEV ORI SCH (08:40)
[2017-09-14] MEDS: FUROSEMIDE 80MG TABLET PO SCH (08:40)
[2017-09-14] MEDS: POTASSIUM CHLORIDE 10MEQ TABLET SR PO SCH (08:42)
[2017-09-14] MEDS: ASCORBIC ACID 250 MG TABLET PO SCH (08:42)
[2017-09-14] MEDS: CYANOCOBALAMIN 1000MCG TABLET PO SCH (08:42)
[2017-09-14] MEDS: ALLOPURINOL 100 MG TABLET PO SCH (08:42)
[2017-09-14] MEDS: DIAZEPAM 5 MG TABLET PO SCH ×2 (08:42→16:59)
[2017-09-14] MEDS: FOLIC ACID/VITAMIN B COMP W-C TABLET PO SCH (08:42)
[2017-09-14] MEDS: VERAPAMIL HCL 240MG SR TABLET PO SCH ×2 (08:44→21:00)
[2017-09-14] MEDS: DOCUSATE SODIUM 100MG CAPSULE PO PRN (13:55)
[2017-09-14] MEDS: METOPROLOL TARTRATE 5MG/5ML VIAL IV PRN (13:58)
[2017-09-14] MEDS: CINACALCET HCL 30MG TABLET PO SCH (16:59)
[2017-09-14] MEDS: ONDANSETRON HCL 4MG/2ML VIAL IV PRN (16:59)
[2017-09-14] MEDS: IPRATROPIUM/ALBUTEROL 0.5-3(2.5)MG/3ML NEB HHN PRN (17:45)
[2017-09-14] MEDS: METOPROLOL TARTRATE 25MG TABLET PO SCH (21:00)
[2017-09-14] MEDS: ATORVASTATIN CALCIUM 10MG TABLET PO SCH (21:01)
[2017-09-15 04:34] VITALS: BP 112/80
[2017-09-15] MEDS: ONDANSETRON HCL 4MG/2ML VIAL IV PRN ×2 (06:27→14:18)
[2017-09-15] MEDS: AMIODARONE HCL 200 MG TABLET PO SCH ×3 (06:27→22:42)
[2017-09-15] MEDS: FERROUS SULFATE 325MG TABLET PO SCH ×2 (07:50→17:18)
[2017-09-15 08:00] VITALS: BP 120/80
[2017-09-15] MEDS: FLUTICASONE PROPIONATE 50MCG/SPRAY BOTTLE BOTHNSTRLS SCH (09:00)
[2017-09-15] MEDS: FLUTICASONE/VILANTEROL 200-25 BLST.W.DEV ORI SCH (09:00)
[2017-09-15] MEDS: POTASSIUM CHLORIDE 10MEQ TABLET SR PO SCH (09:00)
[2017-09-15] MEDS: CYANOCOBALAMIN 1000MCG TABLET PO SCH (09:00)
[2017-09-15] MEDS: METOPROLOL TARTRATE 25MG TABLET PO SCH ×2 (09:00→21:00)
[2017-09-15] MEDS: FOLIC ACID/VITAMIN B COMP W-C TABLET PO SCH (09:04)
[2017-09-15] MEDS: FUROSEMIDE 80MG TABLET PO SCH (09:05)
[2017-09-15] MEDS: CINACALCET HCL 30MG TABLET PO SCH (09:06)
[2017-09-15] MEDS: FAMOTIDINE 20MG TABLET PO SCH (09:06)
[2017-09-15] MEDS: ASCORBIC ACID 250 MG TABLET PO SCH (09:07)
[2017-09-15] MEDS: DIAZEPAM 5 MG TABLET PO SCH ×2 (09:07→17:12)
[2017-09-15] MEDS: VERAPAMIL HCL 240MG SR TABLET PO SCH ×2 (09:08→21:00)
[2017-09-15] MEDS: ALLOPURINOL 100 MG TABLET PO SCH (09:08)
[2017-09-15] MEDS: DOCUSATE SODIUM 100MG CAPSULE PO PRN (09:11)
[2017-09-15 12:00] VITALS: BP 89/52
[2017-09-15] MEDS ORDERED: BISMUTH SUBSALICYLATE 262 MG/15 ML-120ML BOTTLE PO NR (14:45)
[2017-09-15] MEDS ORDERED: PROCHLORPERAZINE MALEATE 25MG SUPP PR PRN (14:45)
[2017-09-15 16:00] VITALS: BP 96/75
[2017-09-15 20:00] VITALS: BP 89/53
[2017-09-15] MEDS ORDERED: MAGNESIUM CITRATE 300ML SOLUTION PO NR (20:30)
[2017-09-15] MEDS: ATORVASTATIN CALCIUM 10MG TABLET PO SCH (22:42)
[2017-09-16] VITALS: BP 112/49
[2017-09-16 04:00] VITALS: BP 106/65
[2017-09-16 06:51] LABS: HEMOGLOBIN. 11.1 g/dL (12.0-16.0); MEAN CORPUSCULAR HEMOGLOBIN 22.3 pg (28.0-32.0); MEAN CORPUSCULAR VOLUME 76.6 fL (81.0-99.0); RED BLOOD CELL COUNT 4.97 mill/uL (4.2-5.4); RED CELL DISTRIBUTION WIDTH 17.7 % (11.6-14.6)
[2017-09-16] MEDS: AMIODARONE HCL 200 MG TABLET PO SCH ×3 (07:24→23:21)
[2017-09-16] MEDS: FERROUS SULFATE 325MG TABLET PO SCH ×2 (07:50→17:50)
[2017-09-16 08:00] VITALS: BP 112/66
[2017-09-16] MEDS: FOLIC ACID/VITAMIN B COMP W-C TABLET PO SCH (09:00)
[2017-09-16] MEDS: METOPROLOL TARTRATE 25MG TABLET PO SCH ×2 (09:00→23:20)
[2017-09-16] MEDS: POTASSIUM CHLORIDE 10MEQ TABLET SR PO SCH (09:00)
[2017-09-16] MEDS: VERAPAMIL HCL 240MG SR TABLET PO SCH ×2 (09:00→21:00)
[2017-09-16] MEDS: FLUTICASONE/VILANTEROL 200-25 BLST.W.DEV ORI SCH (09:48)
[2017-09-16] MEDS: DOCUSATE SODIUM 100MG CAPSULE PO PRN (09:48)
[2017-09-16] MEDS: CYANOCOBALAMIN 1000MCG TABLET PO SCH (09:49)
[2017-09-16] MEDS: ASCORBIC ACID 250 MG TABLET PO SCH (09:49)
[2017-09-16] MEDS: DIAZEPAM 5 MG TABLET PO SCH ×2 (09:49→17:00)
[2017-09-16] MEDS: FUROSEMIDE 80MG TABLET PO SCH (09:49)
[2017-09-16] MEDS: FAMOTIDINE 20MG TABLET PO SCH (09:49)
[2017-09-16] MEDS: ALLOPURINOL 100 MG TABLET PO SCH (09:49)
[2017-09-16] MEDS: CINACALCET HCL 30MG TABLET PO SCH (09:49)
[2017-09-16] MEDS ORDERED: BISACODYL 10MG SUPP PR NR (10:00)
[2017-09-16 12:00] VITALS: BP 108/68
[2017-09-16] MEDS ORDERED: SODIUM POLYSTYRENE SULFONATE 15 G/60 ML BOT PO NR (12:45)
[2017-09-16] MEDS: SODIUM CHLORIDE 0.9% 1,000 ML IV SCH ×2 (13:38→22:45)
[2017-09-16] MEDS: SODIUM CHLORIDE 0.9% 250 ML IV NR ×4 (13:39→15:45)
[2017-09-16 16:00] VITALS: BP 127/79
[2017-09-16 18:23] LABS: NUCLEATED RED BLOOD CELLS 1 /100 WBC
[2017-09-16 18:24] LABS: PLATELET ESTIMATE NORMAL
[2017-09-16 18:25] LABS: MEAN PLATELET VOLUME 10.4 fl (7.4-10.4); PLATELET 160 x1000/uL (130-400)
[2017-09-16 20:00] VITALS: BP 104/75
[2017-09-16] MEDS: ATORVASTATIN CALCIUM 10MG TABLET PO SCH (23:19)
[2017-09-17] VITALS (27 sets, daily range): BP systolic 69–149; BP diastolic 34–80
[2017-09-17] MEDS: AMIODARONE HCL 200 MG TABLET PO SCH ×3 (07:39→22:56)
[2017-09-17 08:04] LABS: PHOSPHORUS 4.6 mg/dL (2.5-4.9)
[2017-09-17] MEDS: DIAZEPAM 5 MG TABLET PO SCH (10:11)
[2017-09-17] MEDS: ASCORBIC ACID 250 MG TABLET PO SCH (10:11)
[2017-09-17] MEDS: FOLIC ACID/VITAMIN B COMP W-C TABLET PO SCH (10:11)
[2017-09-17] MEDS: CINACALCET HCL 30MG TABLET PO SCH (10:11)
[2017-09-17] MEDS: CYANOCOBALAMIN 1000MCG TABLET PO SCH (10:11)
[2017-09-17] MEDS: ALLOPURINOL 100 MG TABLET PO SCH (10:12)
[2017-09-17] MEDS: FAMOTIDINE 20MG TABLET PO SCH (10:12)
[2017-09-17] MEDS: METOPROLOL TARTRATE 25MG TABLET PO SCH ×2 (10:12→21:27)
[2017-09-17] MEDS: VERAPAMIL HCL 240MG SR TABLET PO SCH ×2 (10:13→21:27)
[2017-09-17] MEDS: FERROUS SULFATE 325MG TABLET PO SCH (10:13)
[2017-09-17] MEDS ORDERED: ETOMIDATE 2MG/ML 10ML VIAL IV ONE (10:31)
[2017-09-17] MEDS ORDERED: VECURONIUM BROMIDE 10 MG/VIAL IV ONE (10:31)
[2017-09-17] MEDS: FLUTICASONE/VILANTEROL 200-25 BLST.W.DEV ORI SCH (10:32)
[2017-09-17] MEDS: SODIUM CHLORIDE 0.9% 1,000 ML IV SCH (10:32)
[2017-09-17] MEDS: ONDANSETRON HCL 4MG/2ML VIAL IV PRN (10:57)
[2017-09-17] MEDS: METOPROLOL TARTRATE 5MG/5ML VIAL IV PRN (12:56)
[2017-09-17] MEDS ORDERED: ATROPINE SULFATE 0.1MG/ML 10ML DISP.SYRIN ONE (13:39)
[2017-09-17] MEDS ORDERED: DEXTROSE 50% WATER 50ML SYRINGE IV ONE (13:39)
[2017-09-17] MEDS ORDERED: EPINEPHRINE 0.1MG/ML (1:10,000) 10ML SYR ONE (13:39)
[2017-09-17] MEDS ORDERED: CALCIUM CHLORIDE 1GM/10ML SYR IV ONE (13:39)
[2017-09-17] MEDS ORDERED: SODIUM BICARBONATE 7.5% 0.9 MEQ/ML 50ML SYR IV ONE (13:39)
[2017-09-17] MEDS ORDERED: DEXTROSE 50% WATER 50ML SYRINGE IV SCH (14:20)
[2017-09-17] MEDS: DEXT 5%/0.9% NACL 1,000 ML IV SCH ×2 (14:27→20:27)
[2017-09-17 14:57] LABS: BG BASE EXCESS -12.5 mmol/L (-2.0-2.0); BG CARBOXYHEMOGLOBIN 0.6 % (0.5-1.5); BG DEOXYHEMOGLOBIN 10.9 % (0.0-5.0); BG FRACTION INSPIRED OXYGEN 28; BG HCO3 ACT 14.4 mmol/L (22.0-26.0); BG METHEMOGLOBIN 0.4 % (0.0-1.5); BG OXYHEMOGLOBIN 88.1 % (94.0-97.0); BG PCO2 36.7 mmHg (35.0-45.0); BG PH 7.212 (7.350-7.450); BG PO2 70.4 mmHg (75.0-100.0); BG SAMPLE SITE RIGHT RADIAL; BG TOTAL HEMOGLOBIN 11.5 g/dL (12.0-18.0); BG VENT MODE NASAL CANNULA
[2017-09-17] MEDS ORDERED: SODIUM POLYSTYRENE SULFONATE 15 G/60 ML BOT PO SCH (15:00)
[2017-09-17] MEDS ORDERED: SORBITOL 70% SOLN 30ML PO NR (15:00)
[2017-09-17] MEDS ORDERED: SORBITOL 70% SOLN 30ML PO SCH (15:00)
[2017-09-17] MEDS ORDERED: SODIUM POLYSTYRENE SULFONATE 15 G/60 ML BOT PO NR ×2 (15:00→17:15)
[2017-09-17] MEDS ORDERED: SODIUM BICARBONATE 8.4% 1 MEQ/ML 50ML SYR IV NR ×2 (16:30→19:30)
[2017-09-17] MEDS ORDERED: ALBUTEROL (0.083%) 2.5MG/3ML NEB ONE (17:03)
[2017-09-17] MEDS ORDERED: FUROSEMIDE 100MG/10ML VIAL IVP NR (17:15)
[2017-09-17] MEDS ORDERED: SODIUM CHLORIDE 0.9% 1,000 ML IV NR (17:15)
[2017-09-17 18:44] LABS: CHLORIDE 103 mEq/L (98-107)
[2017-09-17 19:03] LABS: BG BASE EXCESS -14.5 mmol/L (-2.0-2.0); BG CARBOXYHEMOGLOBIN 0.4 % (0.5-1.5); BG DEOXYHEMOGLOBIN 6.8 % (0.0-5.0); BG FRACTION INSPIRED OXYGEN 50; BG HCO3 ACT 13.8 mmol/L (22.0-26.0); BG METHEMOGLOBIN 0.5 % (0.0-1.5); BG OXYGEN SATURATION 93.1 % (92.0-98.5); BG OXYHEMOGLOBIN 92.3 % (94.0-97.0); BG PCO2 41.8 mmHg (35.0-45.0); BG PH 7.138 (7.350-7.450); BG PO2 88.4 mmHg (75.0-100.0); BG SAMPLE SITE RIGHT RADIAL; BG TIDAL VOLUME(mL) 550 mL; BG TOTAL HEMOGLOBIN 11.3 g/dL (12.0-18.0); BG VENT MODE VENT - A/C; BG VENT RATE 14 set
[2017-09-17] MEDS: ATORVASTATIN CALCIUM 10MG TABLET PO SCH (21:27)
[2017-09-17] MEDS: PIPERACILLIN/TAZ 3.375G PREMIX 50 ML IV SCH (22:21)
[2017-09-17] MEDS ORDERED: VANCOMYCIN 1,500 MG in SODIUM CHLORIDE 0.9% 250 ML IV NR (23:00)
[2017-09-18] VITALS (92 sets, daily range): BP systolic 90–139; BP diastolic 47–85
[2017-09-18 05:33] LABS: HEMATOCRIT 35.2 % (36.0-48.0); HEMATOCRIT. 35.2 % (36.0-48.0); HEMOGLOBIN 10.1 g/dL (12.0-16.0); HEMOGLOBIN. 10.1 g/dL (12.0-16.0); MEAN CORPUSCULAR HEMOGLOBIN 22.2 pg (28.0-32.0); MEAN CORPUSCULAR VOLUME 76.9 fL (81.0-99.0); RED BLOOD CELL COUNT 4.57 mill/uL (4.2-5.4); RED CELL DISTRIBUTION WIDTH 18.1 % (11.6-14.6)
[2017-09-18 05:52] LABS: CHLORIDE 105 mEq/L (98-107)
[2017-09-18 06:01] LABS: PHOSPHORUS 3.9 mg/dL (2.5-4.9)
[2017-09-18 06:04] LABS: TOTAL IRON BINDING CAPACITY 242 ug/dL (250-450)
[2017-09-18] MEDS: PIPERACILLIN/TAZ 3.375G PREMIX 50 ML IV SCH ×3 (06:06→21:19)
[2017-09-18 07:28] LABS: BG BASE EXCESS -6.5 mmol/L (-2.0-2.0); BG CARBOXYHEMOGLOBIN 0.4 % (0.5-1.5); BG DEOXYHEMOGLOBIN 3.6 % (0.0-5.0); BG HCO3 ACT 19.1 mmol/L (22.0-26.0); BG METHEMOGLOBIN 0.1 % (0.0-1.5); BG OXYGEN SATURATION 96.4 % (92.0-98.5); BG OXYHEMOGLOBIN 95.9 % (94.0-97.0); BG PCO2 38.2 mmHg (35.0-45.0); BG PH 7.317 (7.350-7.450); BG PO2 92.6 mmHg (75.0-100.0); BG SAMPLE SITE RIGHT RADIAL; BG TIDAL VOLUME(mL) 550 mL; BG VENT MODE VENT - A/C; BG VENT RATE 14 set
[2017-09-18] MEDS: METOPROLOL TARTRATE 25MG TABLET PO SCH ×2 (09:00→21:18)
[2017-09-18] MEDS: FLUTICASONE/VILANTEROL 200-25 BLST.W.DEV ORI SCH (09:00)
[2017-09-18] MEDS: AMIODARONE HCL 200 MG TABLET PO SCH ×2 (09:00→21:19)
[2017-09-18] MEDS: VERAPAMIL HCL 180MG ER TABLET PO SCH ×2 (09:00→21:18)
[2017-09-18] MEDS: FOLIC ACID/VITAMIN B COMP W-C TABLET PO SCH (09:15)
[2017-09-18] MEDS: FAMOTIDINE 20MG TABLET PO SCH (09:15)
[2017-09-18] MEDS: CYANOCOBALAMIN 1000MCG TABLET PO SCH (09:15)
[2017-09-18] MEDS: CINACALCET HCL 30MG TABLET PO SCH (09:15)
[2017-09-18] MEDS: DEXT 5%/0.9% NACL 1,000 ML IV SCH ×2 (09:16→20:08)
[2017-09-18] MEDS: ASCORBIC ACID 250 MG TABLET PO SCH (10:57)
[2017-09-18] MEDS: LORAZEPAM 2MG/ML CPJ IV PRN (11:29)
[2017-09-18 15:09] LABS: BG BASE EXCESS -0.9 mmol/L (-2.0-2.0); BG CARBOXYHEMOGLOBIN 0.2 % (0.5-1.5); BG DEOXYHEMOGLOBIN 2.7 % (0.0-5.0); BG HCO3 ACT 24.7 mmol/L (22.0-26.0); BG METHEMOGLOBIN 0.3 % (0.0-1.5); BG OXYGEN SATURATION 97.3 % (92.0-98.5); BG OXYHEMOGLOBIN 96.8 % (94.0-97.0); BG PCO2 44.8 mmHg (35.0-45.0); BG PH 7.359 (7.350-7.450); BG PO2 98.7 mmHg (75.0-100.0); BG SAMPLE SITE RIGHT RADIAL; BG TIDAL VOLUME(mL) 550 mL; BG TOTAL HEMOGLOBIN 10.9 g/dL (12.0-18.0); BG VENT MODE VENT - A/C; BG VENT RATE 14 set
[2017-09-18] MEDS: ATORVASTATIN CALCIUM 10MG TABLET PO SCH (21:18)
[2017-09-19] VITALS (96 sets, daily range): BP systolic 92–140; BP diastolic 22–72
[2017-09-19] MEDS ORDERED: KETOROLAC 10MG TABLET NG PRN (04:45)
[2017-09-19] MEDS: HYDROCODONE/ACETAMINOPHEN 10/325MG TABLET NG PRN ×4 (04:58→22:01)
[2017-09-19 05:37] LABS: HEMATOCRIT 33.4 % (36.0-48.0); MEAN CORPUSCULAR HEMOGLOBIN 22.3 pg (28.0-32.0); MEAN CORPUSCULAR VOLUME 74.3 fL (81.0-99.0); RED CELL DISTRIBUTION WIDTH 18.1 % (11.6-14.6)
[2017-09-19 05:58] LABS: PLATELET 112 x1000/uL (130-400)
[2017-09-19 06:02] LABS: CHLORIDE 105 mEq/L (98-107)
[2017-09-19] MEDS: DEXT 5%/0.9% NACL 1,000 ML IV SCH (06:20)
[2017-09-19] MEDS: PIPERACILLIN/TAZ 3.375G PREMIX 50 ML IV SCH ×3 (06:20→21:15)
[2017-09-19] MEDS: IPRATROPIUM/ALBUTEROL 0.5-3(2.5)MG/3ML NEB HHN PRN ×3 (07:56→20:10)
[2017-09-19 08:43] LABS: BG BASE EXCESS 0.3 mmol/L (-2.0-2.0); BG CARBOXYHEMOGLOBIN 0.2 % (0.5-1.5); BG DEOXYHEMOGLOBIN 0.8 % (0.0-5.0); BG FRACTION INSPIRED OXYGEN 50; BG HCO3 ACT 24.1 mmol/L (22.0-26.0); BG METHEMOGLOBIN 0.4 % (0.0-1.5); BG OXYGEN SATURATION 99.2 % (92.0-98.5); BG OXYHEMOGLOBIN 98.6 % (94.0-97.0); BG PCO2 35.4 mmHg (35.0-45.0); BG PO2 155.8 mmHg (75.0-100.0); BG SAMPLE SITE RIGHT BRACHIAL; BG TIDAL VOLUME(mL) 550 mL; BG TOTAL HEMOGLOBIN 10.3 g/dL (12.0-18.0); BG VENT MODE VENT - A/C; BG VENT RATE 14 set
[2017-09-19] MEDS: FLUTICASONE/VILANTEROL 200-25 BLST.W.DEV ORI SCH (09:00)
[2017-09-19] MEDS: METOPROLOL TARTRATE 25MG TABLET PO SCH ×2 (09:00→21:14)
[2017-09-19] MEDS: VERAPAMIL HCL 180MG ER TABLET PO SCH ×2 (09:00→21:15)
[2017-09-19] MEDS: AMIODARONE HCL 200 MG TABLET PO SCH ×2 (09:34→21:14)
[2017-09-19] MEDS: FOLIC ACID/VITAMIN B COMP W-C TABLET PO SCH (09:34)
[2017-09-19] MEDS: ASCORBIC ACID 250 MG TABLET PO SCH (09:34)
[2017-09-19] MEDS: FAMOTIDINE 20MG TABLET PO SCH (09:34)
[2017-09-19] MEDS: CYANOCOBALAMIN 1000MCG TABLET PO SCH (09:36)
[2017-09-19] MEDS ORDERED: NOREPINEPHRINE 4 MG in DEXT 5% WATER 246 ML IV PRN (12:00)
[2017-09-19] MEDS: IRON SUCROSE COMPLEX 100 MG/5 ML ML IV SCH (16:02)
[2017-09-19] MEDS ORDERED: VANCOMYCIN 1 G PREMIX 200 ML IV NR (18:00)
[2017-09-19] MEDS ORDERED: EPOETIN ALFA 10000UNITS/ML VIAL SUBCUT SCH (21:00)
[2017-09-19] MEDS: ATORVASTATIN CALCIUM 10MG TABLET PO SCH (21:14)
[2017-09-20] VITALS (88 sets, daily range): BP systolic 82–139; BP diastolic 39–86
[2017-09-20] MEDS: IPRATROPIUM/ALBUTEROL 0.5-3(2.5)MG/3ML NEB HHN PRN ×5 (00:11→21:13)
[2017-09-20] MEDS ORDERED: NOREPINEPHRINE 4 MG in SODIUM CHLORIDE 0.9% 250 ML IV PRN (03:41)
[2017-09-20 03:58] LABS: HEMATOCRIT 31.9 % (36.0-48.0); HEMOGLOBIN 9.7 g/dL (12.0-16.0); MEAN CORPUSCULAR HEMOGLOBIN 22.5 pg (28.0-32.0); MEAN CORPUSCULAR VOLUME 73.8 fL (81.0-99.0); PLATELET 86 x1000/uL (130-400); RED BLOOD CELL COUNT 4.32 mill/uL (4.2-5.4); RED CELL DISTRIBUTION WIDTH 18.3 % (11.6-14.6)
[2017-09-20] MEDS: PIPERACILLIN/TAZ 3.375G PREMIX 50 ML IV SCH ×2 (05:55→13:36)
[2017-09-20] MEDS: HYDROCODONE/ACETAMINOPHEN 10/325MG TABLET NG PRN ×4 (07:57→20:07)
[2017-09-20] MEDS: AMIODARONE HCL 200 MG TABLET PO SCH ×2 (09:00→20:07)
[2017-09-20] MEDS: METOPROLOL TARTRATE 25MG TABLET PO SCH ×2 (09:00→21:00)
[2017-09-20] MEDS: VERAPAMIL HCL 180MG ER TABLET PO SCH ×2 (09:00→21:00)
[2017-09-20] MEDS: FLUTICASONE/VILANTEROL 200-25 BLST.W.DEV ORI SCH (09:00)
[2017-09-20] MEDS: CYANOCOBALAMIN 1000MCG TABLET PO SCH (09:07)
[2017-09-20] MEDS: ASCORBIC ACID 250 MG TABLET PO SCH (09:08)
[2017-09-20] MEDS: FOLIC ACID/VITAMIN B COMP W-C TABLET PO SCH (09:08)
[2017-09-20] MEDS: FAMOTIDINE 20MG TABLET PO SCH (09:08)
[2017-09-20] MEDS: ERGOCALCIFEROL 50000UNITS CAPSULE PO SCH (09:59)
[2017-09-20] MEDS ORDERED: POTASSIUM CHLORIDE 20MEQ/PACKET NG SCH (10:00)
[2017-09-20] MEDS: IRON SUCROSE COMPLEX 100 MG/5 ML ML IV SCH (16:01)
[2017-09-20 16:53] LABS: BG BASE EXCESS 0.1 mmol/L (-2.0-2.0); BG CARBOXYHEMOGLOBIN 0.1 % (0.5-1.5); BG DEOXYHEMOGLOBIN 1.3 % (0.0-5.0); BG FRACTION INSPIRED OXYGEN 50; BG HCO3 ACT 26.2 mmol/L (22.0-26.0); BG METHEMOGLOBIN 0.1 % (0.0-1.5); BG OXYGEN SATURATION 98.7 % (92.0-98.5); BG OXYHEMOGLOBIN 98.5 % (94.0-97.0); BG PCO2 48.7 mmHg (35.0-45.0); BG PH 7.348 (7.350-7.450); BG PO2 140.3 mmHg (75.0-100.0); BG PRESSURE SUPPORT 10; BG SAMPLE SITE RIGHT RADIAL; BG TIDAL VOLUME(mL) 550 mL; BG TOTAL HEMOGLOBIN 11.3 g/dL (12.0-18.0); BG VENT MODE VENT - SIMV; BG VENT RATE 10 set
[2017-09-20] MEDS: ATORVASTATIN CALCIUM 10MG TABLET PO SCH (20:07)
[2017-09-20] MEDS: PIPERACILLIN/TAZ 2.25G PREMIX 50 ML IV SCH (21:14)
[2017-09-21] VITALS (49 sets, daily range): BP systolic 62–148; BP diastolic 25–93
[2017-09-21] MEDS: HYDROCODONE/ACETAMINOPHEN 10/325MG TABLET NG PRN ×2 (00:40→18:11)
[2017-09-21] MEDS: IPRATROPIUM/ALBUTEROL 0.5-3(2.5)MG/3ML NEB HHN PRN ×2 (03:31→08:51)
[2017-09-21] MEDS: LORAZEPAM 2MG/ML CPJ IV PRN ×2 (03:49→13:18)
[2017-09-21] MEDS: PIPERACILLIN/TAZ 2.25G PREMIX 50 ML IV SCH ×3 (05:22→21:50)
[2017-09-21 05:51] LABS: HEMOGLOBIN 10.6 g/dL (12.0-16.0); MEAN CORPUSCULAR HEMOGLOBIN 23.6 pg (28.0-32.0); MEAN CORPUSCULAR VOLUME 75.7 fL (81.0-99.0); RED BLOOD CELL COUNT 4.49 mill/uL (4.2-5.4); RED CELL DISTRIBUTION WIDTH 18.5 % (11.6-14.6)
[2017-09-21 08:46] LABS: PLATELET 103 x1000/uL (130-400)
[2017-09-21] MEDS: AMIODARONE HCL 200 MG TABLET PO SCH ×2 (08:51→21:49)
[2017-09-21] MEDS: ASCORBIC ACID 250 MG TABLET PO SCH (08:51)
[2017-09-21] MEDS: FOLIC ACID/VITAMIN B COMP W-C TABLET PO SCH (08:51)
[2017-09-21] MEDS: FAMOTIDINE 20MG TABLET PO SCH (08:51)
[2017-09-21] MEDS: VERAPAMIL HCL 180MG ER TABLET PO SCH ×2 (08:52→21:49)
[2017-09-21] MEDS: CYANOCOBALAMIN 1000MCG TABLET PO SCH (08:53)
[2017-09-21] MEDS: METOPROLOL TARTRATE 25MG TABLET PO SCH ×2 (08:53→21:48)
[2017-09-21 16:37] LABS: BG BASE EXCESS -0.3 mmol/L (-2.0-2.0); BG CARBOXYHEMOGLOBIN 0.4 % (0.5-1.5); BG DEOXYHEMOGLOBIN 1.8 % (0.0-5.0); BG FRACTION INSPIRED OXYGEN 50; BG HCO3 ACT 25.9 mmol/L (22.0-26.0); BG METHEMOGLOBIN 0.2 % (0.0-1.5); BG OXYGEN SATURATION 98.2 % (92.0-98.5); BG OXYHEMOGLOBIN 97.6 % (94.0-97.0); BG PH 7.341 (7.350-7.450); BG PO2 113.8 mmHg (75.0-100.0); BG PRESSURE SUPPORT 10; BG SAMPLE SITE RIGHT BRACHIAL; BG TOTAL HEMOGLOBIN 11.2 g/dL (12.0-18.0); BG VENT MODE VENT - SIMV; BG VENT RATE 550 set
[2017-09-21] MEDS: IRON SUCROSE COMPLEX 100 MG/5 ML ML IV SCH (16:43)
[2017-09-21] MEDS: IPRATROPIUM/ALBUTEROL 0.5-3(2.5)MG/3ML NEB HHN SCH ×2 (17:05→21:08)
[2017-09-21] MEDS: ATORVASTATIN CALCIUM 10MG TABLET PO SCH (21:47)
[2017-09-22] VITALS (45 sets, daily range): BP systolic 90–134; BP diastolic 42–76
[2017-09-22] MEDS: IPRATROPIUM/ALBUTEROL 0.5-3(2.5)MG/3ML NEB HHN SCH ×6 (00:06→20:13)
[2017-09-22] MEDS: HYDROCODONE/ACETAMINOPHEN 10/325MG TABLET NG PRN ×5 (02:28→23:52)
[2017-09-22 05:40] LABS: RED BLOOD CELL COUNT 4.34 mill/uL (4.2-5.4); RED CELL DISTRIBUTION WIDTH 18.3 % (11.6-14.6)
[2017-09-22] MEDS: PIPERACILLIN/TAZ 2.25G PREMIX 50 ML IV SCH ×3 (06:07→21:19)
[2017-09-22 07:19] LABS: PLATELET 117 x1000/uL (130-400)
[2017-09-22] MEDS: METOPROLOL TARTRATE 25MG TABLET PO SCH ×2 (09:00→22:00)
[2017-09-22] MEDS ORDERED: HEPARIN SODIUM 1,000 UNIT/1ML VIAL IV NR (10:15)
[2017-09-22] MEDS: CYANOCOBALAMIN 1000MCG TABLET PO SCH (10:59)
[2017-09-22] MEDS: FOLIC ACID/VITAMIN B COMP W-C TABLET PO SCH (11:00)
[2017-09-22] MEDS: FAMOTIDINE 20MG TABLET PO SCH (11:00)
[2017-09-22] MEDS: AMIODARONE HCL 200 MG TABLET PO SCH ×2 (11:00→21:19)
[2017-09-22] MEDS: ASCORBIC ACID 250 MG TABLET PO SCH (11:00)
[2017-09-22] MEDS: VERAPAMIL HCL 180MG ER TABLET PO SCH ×2 (11:01→20:32)
[2017-09-22] MEDS ORDERED: VANCOMYCIN 1,500 MG in SODIUM CHLORIDE 0.9% 250 ML IV SCH (12:00)
[2017-09-22] MEDS: ONDANSETRON HCL 4MG/2ML VIAL IV PRN (14:12)
[2017-09-22 14:58] LABS: BG BASE EXCESS -1.4 mmol/L (-2.0-2.0); BG CARBOXYHEMOGLOBIN 0.2 % (0.5-1.5); BG DEOXYHEMOGLOBIN 2.2 % (0.0-5.0); BG HCO3 ACT 25.6 mmol/L (22.0-26.0); BG METHEMOGLOBIN 0.2 % (0.0-1.5); BG OXYGEN SATURATION 97.8 % (92.0-98.5); BG OXYHEMOGLOBIN 97.4 % (94.0-97.0); BG PCO2 54.1 mmHg (35.0-45.0); BG PH 7.293 (7.350-7.450); BG PO2 107.9 mmHg (75.0-100.0); BG SAMPLE SITE RIGHT RADIAL; BG TIDAL VOLUME(mL) 550 mL; BG VENT MODE VENT - SIMV; BG VENT RATE 2 set
[2017-09-22] MEDS: IRON SUCROSE COMPLEX 100 MG/5 ML ML IV SCH (16:00)
[2017-09-22] MEDS: LORAZEPAM 2MG/ML CPJ IV PRN (16:12)
[2017-09-22] MEDS: ATORVASTATIN CALCIUM 10MG TABLET PO SCH (20:32)
[2017-09-23] VITALS (42 sets, daily range): BP systolic 104–156; BP diastolic 49–75
[2017-09-23] MEDS: IPRATROPIUM/ALBUTEROL 0.5-3(2.5)MG/3ML NEB HHN SCH ×6 (00:16→20:12)
[2017-09-23] MEDS: PIPERACILLIN/TAZ 2.25G PREMIX 50 ML IV SCH ×3 (06:47→22:09)
[2017-09-23] MEDS: ASCORBIC ACID 250 MG TABLET PO SCH (08:08)
[2017-09-23] MEDS: CYANOCOBALAMIN 1000MCG TABLET PO SCH (08:08)
[2017-09-23] MEDS: FOLIC ACID/VITAMIN B COMP W-C TABLET PO SCH (08:08)
[2017-09-23] MEDS: FAMOTIDINE 20MG TABLET PO SCH (08:08)
[2017-09-23] MEDS: METOPROLOL TARTRATE 25MG TABLET PO SCH ×2 (08:09→22:09)
[2017-09-23] MEDS: AMIODARONE HCL 200 MG TABLET PO SCH ×2 (08:44→21:22)
[2017-09-23] MEDS: HYDROCODONE/ACETAMINOPHEN 10/325MG TABLET NG PRN ×2 (08:50→19:50)
[2017-09-23] MEDS: VERAPAMIL HCL 180MG ER TABLET PO SCH ×2 (09:44→20:53)
[2017-09-23 09:47] LABS: HEMATOCRIT 34.1 % (36.0-48.0); HEMOGLOBIN 10.1 g/dL (12.0-16.0); MEAN CORPUSCULAR HEMOGLOBIN 22.6 pg (28.0-32.0); MEAN CORPUSCULAR VOLUME 76.1 fL (81.0-99.0); PLATELET 104 x1000/uL (130-400); RED BLOOD CELL COUNT 4.48 mill/uL (4.2-5.4); RED CELL DISTRIBUTION WIDTH 18.8 % (11.6-14.6)
[2017-09-23 09:49] LABS: CHLORIDE 103 mEq/L (98-107)
[2017-09-23 09:56] LABS: PHOSPHORUS 4.3 mg/dL (2.5-4.9)
[2017-09-23] MEDS: DOCUSATE SODIUM 100MG CAPSULE PO PRN (12:10)
[2017-09-23 14:08] LABS: BG BASE EXCESS -2.9 mmol/L (-2.0-2.0); BG CARBOXYHEMOGLOBIN 0.2 % (0.5-1.5); BG DEOXYHEMOGLOBIN 1.7 % (0.0-5.0); BG HCO3 ACT 23.5 mmol/L (22.0-26.0); BG METHEMOGLOBIN 0.3 % (0.0-1.5); BG OXYGEN SATURATION 98.3 % (92.0-98.5); BG OXYHEMOGLOBIN 97.8 % (94.0-97.0); BG PCO2 47.5 mmHg (35.0-45.0); BG PH 7.312 (7.350-7.450); BG PO2 125.4 mmHg (75.0-100.0); BG SAMPLE SITE RIGHT RADIAL; BG TIDAL VOLUME(mL) 550 mL; BG TOTAL HEMOGLOBIN 11.1 g/dL (12.0-18.0); BG VENT MODE VENT - SIMV; BG VENT RATE 12 set
[2017-09-23] MEDS: IRON SUCROSE COMPLEX 100 MG/5 ML ML IV SCH (15:22)
[2017-09-23] MEDS: ATORVASTATIN CALCIUM 10MG TABLET PO SCH (20:53)
[2017-09-23] MEDS: ONDANSETRON HCL 4MG/2ML VIAL IV PRN (21:20)
[2017-09-23] MEDS ORDERED: LORAZEPAM 2MG/ML CPJ IV PRN (22:30)
[2017-09-24] VITALS (75 sets, daily range): BP systolic 89–189; BP diastolic 35–102
[2017-09-24] MEDS: IPRATROPIUM/ALBUTEROL 0.5-3(2.5)MG/3ML NEB HHN SCH ×6 (00:17→19:56)
[2017-09-24 05:24] LABS: HEMATOCRIT 36.2 % (36.0-48.0); HEMOGLOBIN 10.6 g/dL (12.0-16.0); MEAN CORPUSCULAR HEMOGLOBIN 22.3 pg (28.0-32.0); MEAN CORPUSCULAR VOLUME 76.6 fL (81.0-99.0); RED BLOOD CELL COUNT 4.73 mill/uL (4.2-5.4); RED CELL DISTRIBUTION WIDTH 18.8 % (11.6-14.6)
[2017-09-24 06:16] LABS: BG BASE EXCESS -3.1 mmol/L (-2.0-2.0); BG CARBOXYHEMOGLOBIN 0.7 % (0.5-1.5); BG DEOXYHEMOGLOBIN 0.8 % (0.0-5.0); BG FRACTION INSPIRED OXYGEN 100; BG HCO3 ACT 24.1 mmol/L (22.0-26.0); BG METHEMOGLOBIN 0.2 % (0.0-1.5); BG OXYGEN SATURATION 99.2 % (92.0-98.5); BG OXYHEMOGLOBIN 98.3 % (94.0-97.0); BG PCO2 52.8 mmHg (35.0-45.0); BG PH 7.277 (7.350-7.450); BG PO2 185.4 mmHg (75.0-100.0); BG SAMPLE SITE RIGHT RADIAL; BG TOTAL HEMOGLOBIN 11.3 g/dL (12.0-18.0); BG VENT MODE MASK - NRB
[2017-09-24] MEDS ORDERED: IPRATROPIUM/ALBUTEROL 0.5-3(2.5)MG/3ML NEB HHN PRN (06:30)
[2017-09-24] MEDS: PIPERACILLIN/TAZ 2.25G PREMIX 50 ML IV SCH ×3 (07:17→21:05)
[2017-09-24 08:01] LABS: PLATELET 114 x1000/uL (130-400)
[2017-09-24] MEDS: AMIODARONE HCL 200 MG TABLET PO SCH ×2 (09:00→21:04)
[2017-09-24] MEDS: METOPROLOL TARTRATE 25MG TABLET PO SCH ×2 (09:00→21:05)
[2017-09-24] MEDS ORDERED: DOCUSATE SODIUM SUGAR FREE 100MG/10ML UDC PO PRN (09:30)
[2017-09-24] MEDS: FOLIC ACID/VITAMIN B COMP W-C TABLET PO SCH (09:37)
[2017-09-24] MEDS: CYANOCOBALAMIN 1000MCG TABLET PO SCH (09:37)
[2017-09-24] MEDS: FAMOTIDINE 20MG TABLET PO SCH (09:37)
[2017-09-24] MEDS: ASCORBIC ACID 250 MG TABLET PO SCH (09:37)
[2017-09-24] MEDS: VERAPAMIL HCL 120MG TABLET PO SCH ×2 (11:00→21:04)
[2017-09-24 11:11] LABS: BG BASE EXCESS -3.3 mmol/L (-2.0-2.0); BG CARBOXYHEMOGLOBIN 0.3 % (0.5-1.5); BG DEOXYHEMOGLOBIN 1.4 % (0.0-5.0); BG FRACTION INSPIRED OXYGEN 100; BG HCO3 ACT 23.5 mmol/L (22.0-26.0); BG METHEMOGLOBIN 0.3 % (0.0-1.5); BG OXYGEN SATURATION 98.6 % (92.0-98.5); BG PCO2 50.2 mmHg (35.0-45.0); BG PH 7.289 (7.350-7.450); BG SAMPLE SITE RIGHT BRACHIAL; BG TOTAL HEMOGLOBIN 11.6 g/dL (12.0-18.0); BG VENT MODE MASK - NRB
[2017-09-24] MEDS ORDERED: SUCCINYLCHOLINE CHLORIDE 200MG/10ML VIAL IV ONE (13:43)
[2017-09-24] MEDS ORDERED: EPINEPHRINE 0.1MG/ML (1:10,000) 10ML SYR ONE (13:51)
[2017-09-24] MEDS ORDERED: SODIUM BICARBONATE 7.5% 0.9 MEQ/ML 50ML SYR IV ONE (13:51)
[2017-09-24] MEDS: LORAZEPAM 2MG/ML CPJ IV PRN ×2 (16:36→21:27)
[2017-09-24 17:04] LABS: BG BASE EXCESS -1.6 mmol/L (-2.0-2.0); BG CARBOXYHEMOGLOBIN 0.3 % (0.5-1.5); BG DEOXYHEMOGLOBIN 4.7 % (0.0-5.0); BG FRACTION INSPIRED OXYGEN 100; BG HCO3 ACT 24.6 mmol/L (22.0-26.0); BG OXYGEN SATURATION 95.3 % (92.0-98.5); BG PCO2 47.6 mmHg (35.0-45.0); BG PH 7.331 (7.350-7.450); BG PO2 79.1 mmHg (75.0-100.0); BG SAMPLE SITE RIGHT BRACHIAL; BG TIDAL VOLUME(mL) 600 mL; BG TOTAL HEMOGLOBIN 11.3 g/dL (12.0-18.0); BG VENT MODE VENT - A/C; BG VENT RATE 12 set
[2017-09-24] MEDS: IRON SUCROSE COMPLEX 100 MG/5 ML ML IV SCH (18:18)
[2017-09-24] MEDS: HYDROCODONE/ACETAMINOPHEN 10/325MG TABLET PO PRN ×2 (18:19→22:12)
[2017-09-24] MEDS: ATORVASTATIN CALCIUM 10MG TABLET PO SCH (21:04)
[2017-09-24] MEDS ORDERED: VANCOMYCIN 1 G PREMIX 200 ML IV SCH (23:00)
[2017-09-25] VITALS (78 sets, daily range): BP systolic 84–158; BP diastolic 49–72
[2017-09-25] MEDS: IPRATROPIUM/ALBUTEROL 0.5-3(2.5)MG/3ML NEB HHN SCH ×7 (00:01→23:43)
[2017-09-25] MEDS: VERAPAMIL HCL 120MG TABLET PO SCH ×3 (05:17→21:02)
[2017-09-25] MEDS: PIPERACILLIN/TAZ 2.25G PREMIX 50 ML IV SCH ×3 (05:42→21:03)
[2017-09-25 06:32] LABS: PHOSPHORUS 3.8 mg/dL (2.5-4.9)
[2017-09-25 06:33] LABS: HEMATOCRIT 28.9 % (36.0-48.0); HEMATOCRIT. 28.9 % (36.0-48.0); HEMOGLOBIN 8.5 g/dL (12.0-16.0); HEMOGLOBIN. 8.5 g/dL (12.0-16.0); MEAN CORPUSCULAR HEMOGLOBIN 22.6 pg (28.0-32.0); MEAN CORPUSCULAR VOLUME 76.7 fL (81.0-99.0); MEAN PLATELET VOLUME 10.8 fl (7.4-10.4); PLATELET 105 x1000/uL (130-400); RED BLOOD CELL COUNT 3.77 mill/uL (4.2-5.4); RED CELL DISTRIBUTION WIDTH 18.5 % (11.6-14.6)
[2017-09-25 08:39] LABS: BG BASE EXCESS 0.4 mmol/L (-2.0-2.0); BG CARBOXYHEMOGLOBIN 1.2 % (0.5-1.5); BG DEOXYHEMOGLOBIN 0.4 % (0.0-5.0); BG FRACTION INSPIRED OXYGEN 100; BG HCO3 ACT 24.5 mmol/L (22.0-26.0); BG METHEMOGLOBIN 0.3 % (0.0-1.5); BG OXYGEN SATURATION 99.6 % (92.0-98.5); BG OXYHEMOGLOBIN 98.1 % (94.0-97.0); BG PCO2 36.9 mmHg (35.0-45.0); BG PO2 242.9 mmHg (75.0-100.0); BG SAMPLE SITE RIGHT BRACHIAL; BG TIDAL VOLUME(mL) 600 mL; BG TOTAL HEMOGLOBIN 7.6 g/dL (12.0-18.0); BG VENT MODE VENT - A/C; BG VENT RATE 12 set
[2017-09-25] MEDS: METOPROLOL TARTRATE 25MG TABLET PO SCH ×2 (09:00→21:00)
[2017-09-25] MEDS: FOLIC ACID/VITAMIN B COMP W-C TABLET PO SCH (09:06)
[2017-09-25] MEDS: CYANOCOBALAMIN 1000MCG TABLET PO SCH (09:07)
[2017-09-25] MEDS: FAMOTIDINE 20MG TABLET PO SCH (09:07)
[2017-09-25] MEDS: ASCORBIC ACID 250 MG TABLET PO SCH (09:07)
[2017-09-25] MEDS: HYDROCODONE/ACETAMINOPHEN 10/325MG TABLET PO PRN ×3 (09:08→21:26)
[2017-09-25] MEDS: AMIODARONE HCL 200 MG TABLET PO SCH ×2 (09:08→21:02)
[2017-09-25 10:57] LABS: HEMATOCRIT 26.9 % (36.0-48.0); HEMOGLOBIN 8.1 g/dL (12.0-16.0); MEAN CORPUSCULAR HEMOGLOBIN 22.7 pg (28.0-32.0); MEAN CORPUSCULAR VOLUME 75.1 fL (81.0-99.0); PLATELET 103 x1000/uL (130-400); RED BLOOD CELL COUNT 3.57 mill/uL (4.2-5.4)
[2017-09-25] MEDS: LORAZEPAM 2MG/ML CPJ IV PRN (11:21)
[2017-09-25] MEDS ORDERED: SODIUM POLYSTYRENE SULFONATE 15 G/60 ML BOT NG NR (15:00)
[2017-09-25] MEDS: IRON SUCROSE COMPLEX 100 MG/5 ML ML IV SCH (16:24)
[2017-09-25 17:42] LABS: PLATELET ESTIMATE DECREASED
[2017-09-25] MEDS: ATORVASTATIN CALCIUM 10MG TABLET PO SCH (21:02)
[2017-09-25] MEDS: METOCLOPRAMIDE 10MG/10 ML UDC GT SCH (23:34)
[2017-09-26] VITALS (75 sets, daily range): BP systolic 91–148; BP diastolic 40–107
[2017-09-26] MEDS: IPRATROPIUM/ALBUTEROL 0.5-3(2.5)MG/3ML NEB HHN SCH ×4 (03:40→20:23)
[2017-09-26] MEDS: HYDROCODONE/ACETAMINOPHEN 10/325MG TABLET PO PRN ×2 (04:10→10:37)
[2017-09-26] MEDS: PIPERACILLIN/TAZ 2.25G PREMIX 50 ML IV SCH ×3 (05:20→22:42)
[2017-09-26] MEDS: METOCLOPRAMIDE 10MG/10 ML UDC GT SCH ×2 (05:20→13:58)
[2017-09-26] MEDS: VERAPAMIL HCL 120MG TABLET PO SCH ×3 (05:21→22:43)
[2017-09-26 05:51] LABS: HEMATOCRIT 24.5 % (36.0-48.0); HEMOGLOBIN 7.5 g/dL (12.0-16.0); MEAN CORPUSCULAR HEMOGLOBIN 22.6 pg (28.0-32.0); PLATELET 110 x1000/uL (130-400); RED BLOOD CELL COUNT 3.31 mill/uL (4.2-5.4); RED CELL DISTRIBUTION WIDTH 18.3 % (11.6-14.6)
[2017-09-26 09:04] LABS: BG CARBOXYHEMOGLOBIN 1.1 % (0.5-1.5); BG DEOXYHEMOGLOBIN 3.5 % (0.0-5.0); BG FRACTION INSPIRED OXYGEN 30; BG METHEMOGLOBIN 0.4 % (0.0-1.5); BG OXYGEN SATURATION 96.4 % (92.0-98.5); BG PCO2 30.4 mmHg (35.0-45.0); BG PH 7.496 (7.350-7.450); BG SAMPLE SITE RIGHT RADIAL; BG TIDAL VOLUME(mL) 600 mL; BG TOTAL HEMOGLOBIN 8.3 g/dL (12.0-18.0); BG VENT MODE VENT - A/C; BG VENT RATE 12 set
[2017-09-26] MEDS: CYANOCOBALAMIN 1000MCG TABLET PO SCH (10:13)
[2017-09-26] MEDS: ASCORBIC ACID 250 MG TABLET PO SCH (10:13)
[2017-09-26] MEDS: FAMOTIDINE 20MG TABLET PO SCH (10:13)
[2017-09-26] MEDS: FOLIC ACID/VITAMIN B COMP W-C TABLET PO SCH (10:35)
[2017-09-26] MEDS: METOPROLOL TARTRATE 25MG TABLET PO SCH ×2 (10:36→20:36)
[2017-09-26] MEDS: AMIODARONE HCL 200 MG TABLET PO SCH ×2 (14:02→20:36)
[2017-09-26] MEDS: IRON SUCROSE COMPLEX 100 MG/5 ML ML IV SCH (17:18)
[2017-09-26] MEDS ORDERED: METOCLOPRAMIDE 10MG/10 ML UDC GT SCH (18:00)
[2017-09-26] MEDS ORDERED: METHYLPREDNISOLONE SOD SUCC 125 MG/2 ML VIAL IV NR (18:15)
[2017-09-26] MEDS: METOCLOPRAMIDE 10MG/10 ML UDC NG SCH (20:35)
[2017-09-26] MEDS: ATORVASTATIN CALCIUM 10MG TABLET PO SCH (20:36)
[2017-09-26] MEDS: EPOETIN ALFA 10000UNITS/ML VIAL SUBCUT SCH (20:39)
[2017-09-27] VITALS (55 sets, daily range): BP systolic 93–165; BP diastolic 18–90
[2017-09-27] MEDS: IPRATROPIUM/ALBUTEROL 0.5-3(2.5)MG/3ML NEB HHN SCH ×6 (00:10→20:26)
[2017-09-27] MEDS: METHYLPREDNISOLONE SOD SUCC 40 MG/ML VIAL IV SCH ×3 (03:50→17:08)
[2017-09-27] MEDS: METOCLOPRAMIDE 10MG/10 ML UDC NG SCH ×3 (04:51→20:14)
[2017-09-27 05:41] LABS: HEMATOCRIT 26.3 % (36.0-48.0); HEMATOCRIT. 26.3 % (36.0-48.0); HEMOGLOBIN 8.4 g/dL (12.0-16.0); HEMOGLOBIN. 8.4 g/dL (12.0-16.0); MEAN CORPUSCULAR HEMOGLOBIN 23.8 pg (28.0-32.0); MEAN CORPUSCULAR VOLUME 74.7 fL (81.0-99.0); RED BLOOD CELL COUNT 3.52 mill/uL (4.2-5.4); RED CELL DISTRIBUTION WIDTH 19.4 % (11.6-14.6)
[2017-09-27] MEDS: VERAPAMIL HCL 120MG TABLET PO SCH ×3 (06:24→21:32)
[2017-09-27] MEDS: PIPERACILLIN/TAZ 2.25G PREMIX 50 ML IV SCH ×2 (06:25→14:00)
[2017-09-27 06:29] LABS: PHOSPHORUS 2.6 mg/dL (2.5-4.9)
[2017-09-27] MEDS: ONDANSETRON HCL 4MG/2ML VIAL IV PRN (07:58)
[2017-09-27 08:40] LABS: PLATELET ESTIMATE DECREASED
[2017-09-27 08:41] LABS: PLATELET 109 x1000/uL (130-400)
[2017-09-27] MEDS: NITROGLYCERIN 0.4MG TABLET SL SL PRN (08:45)
[2017-09-27] MEDS: AMIODARONE HCL 200 MG TABLET PO SCH ×2 (08:49→21:35)
[2017-09-27] MEDS: ERGOCALCIFEROL 50000UNITS CAPSULE PO SCH (08:49)
[2017-09-27] MEDS: FAMOTIDINE 20MG TABLET PO SCH (08:49)
[2017-09-27] MEDS: METOPROLOL TARTRATE 25MG TABLET PO SCH ×2 (08:50→21:34)
[2017-09-27] MEDS: ASCORBIC ACID 250 MG TABLET PO SCH (08:50)
[2017-09-27] MEDS: FOLIC ACID/VITAMIN B COMP W-C TABLET PO SCH (08:50)
[2017-09-27] MEDS: CYANOCOBALAMIN 1000MCG TABLET PO SCH (09:01)
[2017-09-27 09:09] LABS: BG BASE EXCESS 0.3 mmol/L (-2.0-2.0); BG CARBOXYHEMOGLOBIN 1.4 % (0.5-1.5); BG DEOXYHEMOGLOBIN 7.4 % (0.0-5.0); BG FRACTION INSPIRED OXYGEN 35; BG METHEMOGLOBIN 0.1 % (0.0-1.5); BG OXYGEN SATURATION 92.5 % (92.0-98.5); BG OXYHEMOGLOBIN 91.1 % (94.0-97.0); BG PH 7.454 (7.350-7.450); BG PO2 61.4 mmHg (75.0-100.0); BG SAMPLE SITE RIGHT BRACHIAL; BG TIDAL VOLUME(mL) 600 mL; BG TOTAL HEMOGLOBIN 9.9 g/dL (12.0-18.0); BG VENT MODE VENT - A/C; BG VENT RATE 12 set
[2017-09-27] MEDS: HYDROCODONE/ACETAMINOPHEN 10/325MG TABLET PO PRN ×2 (11:59→17:14)
[2017-09-27 14:53] LABS: BG BASE EXCESS -0.6 mmol/L (-2.0-2.0); BG CARBOXYHEMOGLOBIN 0.6 % (0.5-1.5); BG DEOXYHEMOGLOBIN 7.9 % (0.0-5.0); BG FRACTION INSPIRED OXYGEN 35; BG HCO3 ACT 23.6 mmol/L (22.0-26.0); BG METHEMOGLOBIN 0.1 % (0.0-1.5); BG OXYHEMOGLOBIN 91.4 % (94.0-97.0); BG PH 7.422 (7.350-7.450); BG PO2 63.5 mmHg (75.0-100.0); BG PRESSURE SUPPORT 10; BG SAMPLE SITE RIGHT BRACHIAL; BG TIDAL VOLUME(mL) 600 mL; BG TOTAL HEMOGLOBIN 10.3 g/dL (12.0-18.0); BG VENT MODE VENT - SIMV; BG VENT RATE 10 set
[2017-09-27] MEDS: IRON SUCROSE COMPLEX 100 MG/5 ML ML IV SCH (15:28)
[2017-09-27] MEDS: ATORVASTATIN CALCIUM 10MG TABLET PO SCH (21:34)
[2017-09-27] MEDS: PIPERACILLIN/TAZOBACTAM 2.25 G in SODIUM CHLORIDE 0.9% 50 ML IV SCH (21:35)
[2017-09-28] VITALS (56 sets, daily range): BP systolic 47–174; BP diastolic 31–124
[2017-09-28] MEDS: IPRATROPIUM/ALBUTEROL 0.5-3(2.5)MG/3ML NEB HHN SCH ×7 (00:30→23:57)
[2017-09-28] MEDS: METHYLPREDNISOLONE SOD SUCC 40 MG/ML VIAL IV SCH ×3 (03:02→17:38)
[2017-09-28] MEDS: METOCLOPRAMIDE 10MG/10 ML UDC NG SCH ×3 (04:00→20:37)
[2017-09-28 05:27] LABS: HEMATOCRIT 29.4 % (36.0-48.0); HEMOGLOBIN 9.2 g/dL (12.0-16.0); MEAN CORPUSCULAR HEMOGLOBIN 23.5 pg (28.0-32.0); MEAN CORPUSCULAR VOLUME 75.6 fL (81.0-99.0); PLATELET 156 x1000/uL (130-400); RED BLOOD CELL COUNT 3.89 mill/uL (4.2-5.4); RED CELL DISTRIBUTION WIDTH 20.1 % (11.6-14.6)
[2017-09-28 06:13] LABS: CHLORIDE 96 mEq/L (98-107)
[2017-09-28] MEDS: VERAPAMIL HCL 120MG TABLET PO SCH ×4 (06:25→22:00)
[2017-09-28] MEDS: PIPERACILLIN/TAZOBACTAM 2.25 G in SODIUM CHLORIDE 0.9% 50 ML IV SCH ×3 (06:26→22:00)
[2017-09-28] MEDS: NITROGLYCERIN 0.4MG TABLET SL SL PRN ×2 (07:12→18:25)
[2017-09-28] MEDS: FOLIC ACID/VITAMIN B COMP W-C TABLET PO SCH (08:19)
[2017-09-28] MEDS: METOPROLOL TARTRATE 25MG TABLET PO SCH ×2 (08:19→21:13)
[2017-09-28] MEDS: ASCORBIC ACID 250 MG TABLET PO SCH (08:21)
[2017-09-28] MEDS: FAMOTIDINE 20MG TABLET PO SCH ×2 (08:21→09:40)
[2017-09-28] MEDS: CYANOCOBALAMIN 1000MCG TABLET PO SCH (08:21)
[2017-09-28] MEDS: AMIODARONE HCL 200 MG TABLET PO SCH ×2 (09:39→21:13)
[2017-09-28] MEDS: HYDROCODONE/ACETAMINOPHEN 10/325MG TABLET PO PRN ×3 (09:40→18:16)
[2017-09-28 10:00] LABS: BG BASE EXCESS 0.3 mmol/L (-2.0-2.0); BG CARBOXYHEMOGLOBIN 0.5 % (0.5-1.5); BG DEOXYHEMOGLOBIN 7.9 % (0.0-5.0); BG FRACTION INSPIRED OXYGEN 40; BG HCO3 ACT 25.3 mmol/L (22.0-26.0); BG METHEMOGLOBIN 0.1 % (0.0-1.5); BG OXYGEN SATURATION 92.1 % (92.0-98.5); BG OXYHEMOGLOBIN 91.5 % (94.0-97.0); BG PCO2 42.4 mmHg (35.0-45.0); BG PH 7.393 (7.350-7.450); BG PO2 65.5 mmHg (75.0-100.0); BG PRESSURE SUPPORT 8; BG SAMPLE SITE RIGHT BRACHIAL; BG TIDAL VOLUME(mL) 600 mL; BG TOTAL HEMOGLOBIN 10.2 g/dL (12.0-18.0); BG VENT MODE VENT - SIMV; BG VENT RATE 8 set
[2017-09-28] MEDS ORDERED: HEPARIN SODIUM 1,000 UNIT/1ML VIAL IV ONE (13:45)
[2017-09-28] MEDS ORDERED: VANCOMYCIN 1 G PREMIX 200 ML IV SCH (14:00)
[2017-09-28] MEDS: IRON SUCROSE COMPLEX 100 MG/5 ML ML IV SCH (16:47)
[2017-09-28 16:50] LABS: BG BASE EXCESS 0.7 mmol/L (-2.0-2.0); BG CARBOXYHEMOGLOBIN 0.6 % (0.5-1.5); BG DEOXYHEMOGLOBIN 1.6 % (0.0-5.0); BG FRACTION INSPIRED OXYGEN 45; BG HCO3 ACT 25.7 mmol/L (22.0-26.0); BG METHEMOGLOBIN 0.2 % (0.0-1.5); BG OXYGEN SATURATION 98.4 % (92.0-98.5); BG OXYHEMOGLOBIN 97.6 % (94.0-97.0); BG PH 7.395 (7.350-7.450); BG PO2 122.4 mmHg (75.0-100.0); BG PRESSURE SUPPORT 8; BG SAMPLE SITE RIGHT BRACHIAL; BG TIDAL VOLUME(mL) 600 mL; BG TOTAL HEMOGLOBIN 9.7 g/dL (12.0-18.0); BG VENT MODE VENT - SIMV; BG VENT RATE 6 set
[2017-09-28] MEDS: ATORVASTATIN CALCIUM 10MG TABLET PO SCH (21:13)
[2017-09-28] MEDS: EPOETIN ALFA 10000UNITS/ML VIAL SUBCUT SCH (21:17)
[2017-09-29] VITALS (25 sets, daily range): BP systolic 99–164; BP diastolic 57–79
[2017-09-29] MEDS: NITROGLYCERIN 0.4MG TABLET SL SL PRN ×3 (00:11→21:24)
[2017-09-29] MEDS: HYDROCODONE/ACETAMINOPHEN 10/325MG TABLET PO PRN ×2 (00:24→09:00)
[2017-09-29] MEDS: METHYLPREDNISOLONE SOD SUCC 40 MG/ML VIAL IV SCH ×3 (02:27→18:19)
[2017-09-29] MEDS: IPRATROPIUM/ALBUTEROL 0.5-3(2.5)MG/3ML NEB HHN SCH ×6 (03:45→23:33)
[2017-09-29] MEDS: METOCLOPRAMIDE 10MG/10 ML UDC NG SCH ×3 (04:00→21:20)
[2017-09-29 05:35] LABS: HEMATOCRIT. 27.6 % (36.0-48.0); HEMOGLOBIN. 8.6 g/dL (12.0-16.0); MEAN CORPUSCULAR HEMOGLOBIN 23.8 pg (28.0-32.0); MEAN CORPUSCULAR VOLUME 76.4 fL (81.0-99.0); MEAN PLATELET VOLUME 10.6 fl (7.4-10.4); PLATELET 170 x1000/uL (130-400); RED BLOOD CELL COUNT 3.61 mill/uL (4.2-5.4); RED CELL DISTRIBUTION WIDTH 21.3 % (11.6-14.6)
[2017-09-29 06:01] LABS: PHOSPHORUS 3.4 mg/dL (2.5-4.9)
[2017-09-29] MEDS: PIPERACILLIN/TAZOBACTAM 2.25 G in SODIUM CHLORIDE 0.9% 50 ML IV SCH ×3 (07:06→22:02)
[2017-09-29] MEDS: VERAPAMIL HCL 120MG TABLET PO SCH ×3 (07:12→22:02)
[2017-09-29 08:43] LABS: BG BASE EXCESS 1.9 mmol/L (-2.0-2.0); BG DEOXYHEMOGLOBIN 1.1 % (0.0-5.0); BG FRACTION INSPIRED OXYGEN 45; BG HCO3 ACT 26.1 mmol/L (22.0-26.0); BG METHEMOGLOBIN 0.3 % (0.0-1.5); BG OXYGEN SATURATION 98.9 % (92.0-98.5); BG OXYHEMOGLOBIN 97.6 % (94.0-97.0); BG PCO2 38.9 mmHg (35.0-45.0); BG PH 7.444 (7.350-7.450); BG PO2 137.4 mmHg (75.0-100.0); BG SAMPLE SITE RIGHT RADIAL; BG TIDAL VOLUME(mL) 600 mL; BG TOTAL HEMOGLOBIN 8.5 g/dL (12.0-18.0); BG VENT MODE VENT - A/C; BG VENT RATE 12 set
[2017-09-29] MEDS: CYANOCOBALAMIN 1000MCG TABLET PO SCH (08:58)
[2017-09-29] MEDS: FAMOTIDINE 20MG TABLET PO SCH (08:58)
[2017-09-29] MEDS: FOLIC ACID/VITAMIN B COMP W-C TABLET PO SCH (08:58)
[2017-09-29] MEDS: METOPROLOL TARTRATE 25MG TABLET PO SCH ×2 (08:59→21:19)
[2017-09-29] MEDS: AMIODARONE HCL 200 MG TABLET PO SCH ×2 (08:59→21:19)
[2017-09-29] MEDS: ASCORBIC ACID 250 MG TABLET PO SCH (09:00)
[2017-09-29] MEDS: LORAZEPAM 2MG/ML CPJ IV PRN (11:37)
[2017-09-29 12:52] LABS: PLATELET ESTIMATE NORMAL
[2017-09-29] MEDS ORDERED: LIDOCAINE HCL/PF 1% 2ML VIAL ONE ×2 (14:14→14:15)
[2017-09-29 16:21] LABS: BG CARBOXYHEMOGLOBIN 0.4 % (0.5-1.5); BG DEOXYHEMOGLOBIN 1.9 % (0.0-5.0); BG FRACTION INSPIRED OXYGEN 40; BG HCO3 ACT 26.7 mmol/L (22.0-26.0); BG METHEMOGLOBIN 0.3 % (0.0-1.5); BG OXYGEN SATURATION 98.1 % (92.0-98.5); BG OXYHEMOGLOBIN 97.4 % (94.0-97.0); BG PCO2 47.8 mmHg (35.0-45.0); BG PH 7.365 (7.350-7.450); BG PO2 116.1 mmHg (75.0-100.0); BG PRESSURE SUPPORT 10; BG SAMPLE SITE RIGHT RADIAL; BG TIDAL VOLUME(mL) 600 mL; BG TOTAL HEMOGLOBIN 9.3 g/dL (12.0-18.0); BG VENT MODE VENT - SIMV; BG VENT RATE 6 set
[2017-09-29] MEDS: ATORVASTATIN CALCIUM 10MG TABLET PO SCH (21:19)
[2017-09-29] MEDS ORDERED: LORAZEPAM 2MG/ML CPJ IV PRN (22:45)
[2017-09-29] MEDS: MORPHINE SULFATE 4 MG/ML CPJ (NOT FOR IM USE) IV PRN (22:57)
[2017-09-30] VITALS (94 sets, daily range): BP systolic 58–160; BP diastolic 30–89
[2017-09-30] MEDS ORDERED: NOREPINEPHRINE 4 MG in DEXT 5% WATER 246 ML IV PRN (01:30)
[2017-09-30] MEDS: METHYLPREDNISOLONE SOD SUCC 40 MG/ML VIAL IV SCH ×3 (02:00→20:26)
[2017-09-30] MEDS: IPRATROPIUM/ALBUTEROL 0.5-3(2.5)MG/3ML NEB HHN SCH ×5 (03:33→20:29)
[2017-09-30] MEDS: METOCLOPRAMIDE 10MG/10 ML UDC NG SCH ×3 (04:35→20:26)
[2017-09-30 05:23] LABS: HEMATOCRIT. 23.1 % (36.0-48.0); MEAN CORPUSCULAR HEMOGLOBIN 23.5 pg (28.0-32.0); MEAN CORPUSCULAR VOLUME 77.3 fL (81.0-99.0); MEAN PLATELET VOLUME 10.3 fl (7.4-10.4); PLATELET 218 x1000/uL (130-400); RED CELL DISTRIBUTION WIDTH 21.7 % (11.6-14.6)
[2017-09-30] MEDS: PIPERACILLIN/TAZOBACTAM 2.25 G in SODIUM CHLORIDE 0.9% 50 ML IV SCH ×3 (06:52→22:44)
[2017-09-30] MEDS: VERAPAMIL HCL 120MG TABLET PO SCH ×3 (06:52→21:59)
[2017-09-30 08:19] LABS: BG BASE EXCESS -1.5 mmol/L (-2.0-2.0); BG CARBOXYHEMOGLOBIN 1.2 % (0.5-1.5); BG DEOXYHEMOGLOBIN 2.9 % (0.0-5.0); BG FRACTION INSPIRED OXYGEN 35; BG HCO3 ACT 23.2 mmol/L (22.0-26.0); BG METHEMOGLOBIN 0.2 % (0.0-1.5); BG OXYGEN SATURATION 97.1 % (92.0-98.5); BG OXYHEMOGLOBIN 95.7 % (94.0-97.0); BG PCO2 38.7 mmHg (35.0-45.0); BG PH 7.396 (7.350-7.450); BG PO2 98.6 mmHg (75.0-100.0); BG SAMPLE SITE RIGHT BRACHIAL; BG TIDAL VOLUME(mL) 600 mL; BG TOTAL HEMOGLOBIN 7.3 g/dL (12.0-18.0); BG VENT MODE VENT - A/C; BG VENT RATE 12 set
[2017-09-30] MEDS: METOPROLOL TARTRATE 25MG TABLET PO SCH ×2 (09:00→20:27)
[2017-09-30] MEDS: FOLIC ACID/VITAMIN B COMP W-C TABLET PO SCH (09:42)
[2017-09-30] MEDS: CYANOCOBALAMIN 1000MCG TABLET PO SCH (09:42)
[2017-09-30] MEDS: FAMOTIDINE 20MG TABLET PO SCH (09:42)
[2017-09-30] MEDS: ASCORBIC ACID 250 MG TABLET PO SCH (09:42)
[2017-09-30] MEDS: MORPHINE SULFATE 4 MG/ML CPJ (NOT FOR IM USE) IV PRN (09:43)
[2017-09-30] MEDS: AMIODARONE HCL 200 MG TABLET PO SCH ×2 (09:43→21:00)
[2017-09-30] MEDS: HYDROCODONE/ACETAMINOPHEN 10/325MG TABLET PO PRN (10:39)
[2017-09-30 11:07] LABS: NUCLEATED RED BLOOD CELLS 1 /100 WBC; PLATELET ESTIMATE NORMAL
[2017-09-30 14:02] LABS: BG BASE EXCESS 0.2 mmol/L (-2.0-2.0); BG CARBOXYHEMOGLOBIN 1.3 % (0.5-1.5); BG DEOXYHEMOGLOBIN 1.9 % (0.0-5.0); BG FRACTION INSPIRED OXYGEN 35; BG HCO3 ACT 24.9 mmol/L (22.0-26.0); BG METHEMOGLOBIN 0.3 % (0.0-1.5); BG OXYGEN SATURATION 98.1 % (92.0-98.5); BG OXYHEMOGLOBIN 96.5 % (94.0-97.0); BG PCO2 40.3 mmHg (35.0-45.0); BG PH 7.408 (7.350-7.450); BG PO2 115.4 mmHg (75.0-100.0); BG PRESSURE SUPPORT 10; BG SAMPLE SITE RIGHT BRACHIAL; BG TIDAL VOLUME(mL) 600 mL; BG TOTAL HEMOGLOBIN 6.8 g/dL (12.0-18.0); BG VENT MODE VENT - SIMV; BG VENT RATE 6 set
[2017-09-30] MEDS ORDERED: LIDOCAINE HCL/PF 1% 2ML VIAL ONE (14:13)
[2017-09-30] MEDS: ATORVASTATIN CALCIUM 10MG TABLET PO SCH (20:26)
[2017-10-01] VITALS (112 sets, daily range): BP systolic 81–200; BP diastolic 42–114
[2017-10-01] MEDS: IPRATROPIUM/ALBUTEROL 0.5-3(2.5)MG/3ML NEB HHN SCH ×6 (00:54→20:32)
[2017-10-01] MEDS: METOCLOPRAMIDE 10MG/10 ML UDC NG SCH ×3 (04:00→20:57)
[2017-10-01] MEDS: PIPERACILLIN/TAZOBACTAM 2.25 G in SODIUM CHLORIDE 0.9% 50 ML IV SCH (05:01)
[2017-10-01] MEDS: VERAPAMIL HCL 120MG TABLET PO SCH ×3 (05:11→21:54)
[2017-10-01 07:03] LABS: MEAN CORPUSCULAR HEMOGLOBIN 24.6 pg (28.0-32.0); MEAN CORPUSCULAR VOLUME 76.3 fL (81.0-99.0); MEAN PLATELET VOLUME 9.8 fl (7.4-10.4); PLATELET 155 x1000/uL (130-400); RED BLOOD CELL COUNT 2.61 mill/uL (4.2-5.4); RED CELL DISTRIBUTION WIDTH 21.3 % (11.6-14.6)
[2017-10-01 07:14] LABS: HEMATOCRIT. 19.9 % (36.0-48.0); HEMOGLOBIN. 6.4 g/dL (12.0-16.0)
[2017-10-01] MEDS: HYDROCODONE/ACETAMINOPHEN 10/325MG TABLET PO PRN (07:48)
[2017-10-01 08:19] LABS: BG BASE EXCESS 1.1 mmol/L (-2.0-2.0); BG CARBOXYHEMOGLOBIN 0.9 % (0.5-1.5); BG DEOXYHEMOGLOBIN 2.9 % (0.0-5.0); BG FRACTION INSPIRED OXYGEN 35; BG HCO3 ACT 25.1 mmol/L (22.0-26.0); BG METHEMOGLOBIN 0.4 % (0.0-1.5); BG OXYGEN SATURATION 97.1 % (92.0-98.5); BG OXYHEMOGLOBIN 95.8 % (94.0-97.0); BG PCO2 36.7 mmHg (35.0-45.0); BG PH 7.453 (7.350-7.450); BG PO2 94.1 mmHg (75.0-100.0); BG PRESSURE SUPPORT 10; BG SAMPLE SITE RIGHT BRACHIAL; BG TIDAL VOLUME(mL) 600 mL; BG TOTAL HEMOGLOBIN 6.9 g/dL (12.0-18.0); BG VENT MODE VENT - SIMV; BG VENT RATE 12 set
[2017-10-01] MEDS: METOPROLOL TARTRATE 25MG TABLET PO SCH ×2 (09:00→21:03)
[2017-10-01] MEDS ORDERED: PROPOFOL 200MG/20ML VIAL IV ONE (09:00)
[2017-10-01] MEDS ORDERED: NOREPINEPHRINE 4 MG in DEXT 5% WATER 246 ML IV PRN (09:00)
[2017-10-01] MEDS: CYANOCOBALAMIN 1000MCG TABLET PO SCH (09:27)
[2017-10-01] MEDS: FAMOTIDINE 20MG TABLET PO SCH (09:27)
[2017-10-01] MEDS: METHYLPREDNISOLONE SOD SUCC 40 MG/ML VIAL IV SCH ×2 (09:27→21:53)
[2017-10-01] MEDS: ASCORBIC ACID 250 MG TABLET PO SCH (09:27)
[2017-10-01] MEDS: AMIODARONE HCL 200 MG TABLET PO SCH ×2 (09:27→20:57)
[2017-10-01] MEDS: FOLIC ACID/VITAMIN B COMP W-C TABLET PO SCH (09:29)
[2017-10-01 12:09] LABS: NUCLEATED RED BLOOD CELLS 1 /100 WBC; PLATELET ESTIMATE NORMAL
[2017-10-01] MEDS ORDERED: LIDOCAINE HCL/PF 1% 2ML VIAL ONE (13:44)
[2017-10-01] MEDS: NITROGLYCERIN 0.4MG TABLET SL SL PRN (13:44)
[2017-10-01] MEDS: LORAZEPAM 2MG/ML CPJ IV PRN (13:46)
[2017-10-01] MEDS ORDERED: VANCOMYCIN 1 G PREMIX 200 ML IV SCH (15:00)
[2017-10-01] MEDS ORDERED: VANCOMYCIN 750 MG PREMIX 150 ML IV SCH (16:00)
[2017-10-01 16:57] LABS: HEMATOCRIT 24.5 % (36.0-48.0); MEAN CORPUSCULAR HEMOGLOBIN 25.3 pg (28.0-32.0); MEAN CORPUSCULAR VOLUME 77.9 fL (81.0-99.0); PLATELET 162 x1000/uL (130-400); RED BLOOD CELL COUNT 3.14 mill/uL (4.2-5.4); RED CELL DISTRIBUTION WIDTH 20.5 % (11.6-14.6)
[2017-10-01] MEDS: ATORVASTATIN CALCIUM 10MG TABLET PO SCH (20:57)
[2017-10-01] MEDS: EPOETIN ALFA 10000UNITS/ML VIAL SUBCUT SCH (22:13)
[2017-10-01 23:25] LABS: HEMATOCRIT 27.2 % (36.0-48.0); HEMOGLOBIN 8.8 g/dL (12.0-16.0)
[2017-10-02] VITALS (94 sets, daily range): BP systolic 96–157; BP diastolic 42–96
[2017-10-02] MEDS: IPRATROPIUM/ALBUTEROL 0.5-3(2.5)MG/3ML NEB HHN SCH ×6 (01:08→19:43)
[2017-10-02] MEDS: HYDROCODONE/ACETAMINOPHEN 10/325MG TABLET PO PRN ×4 (01:26→20:24)
[2017-10-02] MEDS: METOCLOPRAMIDE 10MG/10 ML UDC NG SCH ×3 (04:19→20:16)
[2017-10-02] MEDS: VERAPAMIL HCL 120MG TABLET PO SCH ×3 (05:15→21:38)
[2017-10-02 05:37] LABS: HEMATOCRIT 24.2 % (36.0-48.0); HEMATOCRIT. 24.2 % (36.0-48.0); HEMOGLOBIN 8.1 g/dL (12.0-16.0); HEMOGLOBIN. 8.1 g/dL (12.0-16.0); MEAN CORPUSCULAR HEMOGLOBIN 25.4 pg (28.0-32.0); MEAN CORPUSCULAR VOLUME 75.6 fL (81.0-99.0); PLATELET 155 x1000/uL (130-400); RED CELL DISTRIBUTION WIDTH 20.5 % (11.6-14.6)
[2017-10-02 06:16] LABS: CHLORIDE 97 mEq/L (98-107)
[2017-10-02 06:24] LABS: TOTAL IRON BINDING CAPACITY 232 ug/dL (250-450)
[2017-10-02] MEDS: METOPROLOL TARTRATE 25MG TABLET PO SCH ×2 (09:00→21:00)
[2017-10-02] MEDS: AMIODARONE HCL 200 MG TABLET PO SCH ×2 (09:00→21:38)
[2017-10-02] MEDS: CYANOCOBALAMIN 1000MCG TABLET PO SCH (09:54)
[2017-10-02] MEDS: METHYLPREDNISOLONE SOD SUCC 40 MG/ML VIAL IV SCH ×2 (09:54→20:16)
[2017-10-02] MEDS: ASCORBIC ACID 250 MG TABLET PO SCH (09:54)
[2017-10-02] MEDS: FOLIC ACID/VITAMIN B COMP W-C TABLET PO SCH (09:54)
[2017-10-02] MEDS: FAMOTIDINE 20MG TABLET PO SCH (09:54)
[2017-10-02 11:26] LABS: NUCLEATED RED BLOOD CELLS 2 /100 WBC
[2017-10-02 11:27] LABS: PLATELET ESTIMATE NORMAL
[2017-10-02] MEDS: ATORVASTATIN CALCIUM 10MG TABLET PO SCH (20:16)
[2017-10-02] MEDS: LORAZEPAM 2MG/ML CPJ IV PRN (20:38)
[2017-10-03] VITALS (79 sets, daily range): BP systolic 103–186; BP diastolic 45–107
[2017-10-03] MEDS: METOCLOPRAMIDE 10MG/10 ML UDC NG SCH ×3 (04:00→20:07)
[2017-10-03] MEDS: IPRATROPIUM/ALBUTEROL 0.5-3(2.5)MG/3ML NEB HHN SCH ×5 (04:10→20:21)
[2017-10-03 05:57] LABS: HEMATOCRIT 25.1 % (36.0-48.0); HEMOGLOBIN 8.5 g/dL (12.0-16.0); MEAN CORPUSCULAR VOLUME 76.8 fL (81.0-99.0); PLATELET 173 x1000/uL (130-400); RED BLOOD CELL COUNT 3.27 mill/uL (4.2-5.4); RED CELL DISTRIBUTION WIDTH 21.6 % (11.6-14.6)
[2017-10-03] MEDS: VERAPAMIL HCL 120MG TABLET PO SCH ×3 (06:00→21:18)
[2017-10-03] MEDS: LORAZEPAM 2MG/ML CPJ IV PRN ×2 (06:02→13:49)
[2017-10-03] MEDS ORDERED: ROCURONIUM BROMIDE 10MG/ML VIAL 5ML IV ONE (06:50)
[2017-10-03] MEDS ORDERED: SUCCINYLCHOLINE CHLORIDE 200MG/10ML VIAL IV ONE (06:51)
[2017-10-03] MEDS ORDERED: PHENYLEPHRINE HCL 10 MG/ML 1ML (IV VIAL) IV ONE (06:51)
[2017-10-03] MEDS ORDERED: EPHEDRINE SULFATE 50MG/ML VIAL ONE (06:51)
[2017-10-03] MEDS ORDERED: PROPOFOL 200MG/20ML VIAL IV ONE (06:51)
[2017-10-03] MEDS ORDERED: FENTANYL CITRATE/PF 50MCG/ML 2ML VIAL ONE (07:37)
[2017-10-03] MEDS ORDERED: MIDAZOLAM HCL 2 MG/2 ML VIAL ONE (07:37)
[2017-10-03 09:32] LABS: BG BASE EXCESS -0.9 mmol/L (-2.0-2.0); BG CARBOXYHEMOGLOBIN 0.4 % (0.5-1.5); BG DEOXYHEMOGLOBIN 3.1 % (0.0-5.0); BG FRACTION INSPIRED OXYGEN 35; BG HCO3 ACT 22.8 mmol/L (22.0-26.0); BG METHEMOGLOBIN 0.3 % (0.0-1.5); BG OXYGEN SATURATION 96.9 % (92.0-98.5); BG OXYHEMOGLOBIN 96.2 % (94.0-97.0); BG PH 7.444 (7.350-7.450); BG PO2 89.8 mmHg (75.0-100.0); BG SAMPLE SITE RIGHT BRACHIAL; BG TIDAL VOLUME(mL) 600 mL; BG TOTAL HEMOGLOBIN 9.9 g/dL (12.0-18.0); BG VENT MODE VENT - A/C; BG VENT RATE 12 set
[2017-10-03] MEDS: ASCORBIC ACID 250 MG TABLET PO SCH (10:03)
[2017-10-03] MEDS: CYANOCOBALAMIN 1000MCG TABLET PO SCH (10:03)
[2017-10-03] MEDS: FOLIC ACID/VITAMIN B COMP W-C TABLET PO SCH (10:03)
[2017-10-03] MEDS: FAMOTIDINE 20MG TABLET PO SCH (10:03)
[2017-10-03] MEDS: AMIODARONE HCL 200 MG TABLET PO SCH ×2 (10:06→20:07)
[2017-10-03] MEDS: METOPROLOL TARTRATE 25MG TABLET PO SCH ×2 (10:06→20:07)
[2017-10-03] MEDS: METHYLPREDNISOLONE SOD SUCC 40 MG/ML VIAL IV SCH ×2 (10:10→20:06)
[2017-10-03] MEDS: HYDROCODONE/ACETAMINOPHEN 10/325MG TABLET PO PRN ×2 (10:22→18:26)
[2017-10-03] MEDS: ATORVASTATIN CALCIUM 10MG TABLET PO SCH (20:07)
[2017-10-04] VITALS (51 sets, daily range): BP systolic 108–154; BP diastolic 47–91
[2017-10-04] MEDS: IPRATROPIUM/ALBUTEROL 0.5-3(2.5)MG/3ML NEB HHN SCH ×6 (00:13→20:53)
[2017-10-04] MEDS: LORAZEPAM 2MG/ML CPJ IV PRN ×2 (00:21→13:13)
[2017-10-04] MEDS: METOCLOPRAMIDE 10MG/10 ML UDC NG SCH ×3 (03:37→20:21)
[2017-10-04] MEDS: HYDROCODONE/ACETAMINOPHEN 10/325MG TABLET PO PRN ×4 (03:59→22:09)
[2017-10-04] MEDS: VERAPAMIL HCL 120MG TABLET PO SCH ×3 (05:12→22:00)
[2017-10-04 05:59] LABS: HEMATOCRIT 28.5 % (36.0-48.0); HEMOGLOBIN 9.4 g/dL (12.0-16.0); MEAN CORPUSCULAR VOLUME 78.4 fL (81.0-99.0); PLATELET 202 x1000/uL (130-400); RED BLOOD CELL COUNT 3.63 mill/uL (4.2-5.4); RED CELL DISTRIBUTION WIDTH 22.7 % (11.6-14.6)
[2017-10-04] MEDS: AMIODARONE HCL 200 MG TABLET PO SCH ×2 (08:26→20:22)
[2017-10-04] MEDS: ASCORBIC ACID 250 MG TABLET PO SCH (08:26)
[2017-10-04] MEDS: CYANOCOBALAMIN 1000MCG TABLET PO SCH (08:26)
[2017-10-04] MEDS: FOLIC ACID/VITAMIN B COMP W-C TABLET PO SCH (08:26)
[2017-10-04] MEDS: FAMOTIDINE 20MG TABLET PO SCH (08:26)
[2017-10-04] MEDS: METHYLPREDNISOLONE SOD SUCC 40 MG/ML VIAL IV SCH ×2 (08:28→20:21)
[2017-10-04] MEDS: METOPROLOL TARTRATE 25MG TABLET PO SCH ×2 (08:38→21:00)
[2017-10-04] MEDS: ERGOCALCIFEROL 50000UNITS CAPSULE PO SCH (08:40)
[2017-10-04] MEDS ORDERED: HEPARIN SODIUM 1,000 UNIT/1ML VIAL IV SCH (13:45)
[2017-10-04] MEDS: ATORVASTATIN CALCIUM 10MG TABLET PO SCH (20:22)
[2017-10-04] MEDS ORDERED: EPOETIN ALFA 10000UNITS/ML VIAL SUBCUT SCH (21:00)
[2017-10-05] VITALS (47 sets, daily range): BP systolic 108–193; BP diastolic 30–95
[2017-10-05] MEDS: IPRATROPIUM/ALBUTEROL 0.5-3(2.5)MG/3ML NEB HHN SCH ×5 (00:02→16:25)
[2017-10-05] MEDS: METOCLOPRAMIDE 10MG/10 ML UDC NG SCH ×2 (03:04→13:08)
[2017-10-05] MEDS: HYDROCODONE/ACETAMINOPHEN 10/325MG TABLET PO PRN ×2 (03:08→10:08)
[2017-10-05] MEDS: VERAPAMIL HCL 120MG TABLET PO SCH ×2 (05:06→13:08)
[2017-10-05 05:48] LABS: HEMATOCRIT 28.2 % (36.0-48.0); HEMATOCRIT. 28.2 % (36.0-48.0); HEMOGLOBIN 9.3 g/dL (12.0-16.0); HEMOGLOBIN. 9.3 g/dL (12.0-16.0); MEAN CORPUSCULAR HEMOGLOBIN 25.8 pg (28.0-32.0); MEAN CORPUSCULAR VOLUME 78.3 fL (81.0-99.0); MEAN PLATELET VOLUME 9.4 fl (7.4-10.4); PLATELET 216 x1000/uL (130-400); RED CELL DISTRIBUTION WIDTH 22.9 % (11.6-14.6)
[2017-10-05] MEDS: LORAZEPAM 2MG/ML CPJ IV PRN (07:43)
[2017-10-05 09:08] LABS: BG BASE EXCESS 0.6 mmol/L (-2.0-2.0); BG CARBOXYHEMOGLOBIN 0.6 % (0.5-1.5); BG DEOXYHEMOGLOBIN 1.7 % (0.0-5.0); BG FRACTION INSPIRED OXYGEN 35; BG HCO3 ACT 23.6 mmol/L (22.0-26.0); BG METHEMOGLOBIN 0.2 % (0.0-1.5); BG OXYGEN SATURATION 98.3 % (92.0-98.5); BG OXYHEMOGLOBIN 97.5 % (94.0-97.0); BG PCO2 31.8 mmHg (35.0-45.0); BG PH 7.488 (7.350-7.450); BG PO2 112.5 mmHg (75.0-100.0); BG SAMPLE SITE RIGHT RADIAL; BG TIDAL VOLUME(mL) 600 mL; BG TOTAL HEMOGLOBIN 9.9 g/dL (12.0-18.0); BG VENT MODE VENT - A/C; BG VENT RATE 12 set
[2017-10-05] MEDS: METHYLPREDNISOLONE SOD SUCC 40 MG/ML VIAL IV SCH (09:17)
[2017-10-05] MEDS: FOLIC ACID/VITAMIN B COMP W-C TABLET PO SCH (09:18)
[2017-10-05] MEDS: CYANOCOBALAMIN 1000MCG TABLET PO SCH (09:18)
[2017-10-05] MEDS: METOPROLOL TARTRATE 25MG TABLET PO SCH (09:18)
[2017-10-05] MEDS: ASCORBIC ACID 250 MG TABLET PO SCH (09:18)
[2017-10-05] MEDS: AMIODARONE HCL 200 MG TABLET PO SCH (09:20)
[2017-10-05] MEDS: FAMOTIDINE 20MG TABLET PO SCH (09:20)
[2017-10-05] MEDS ORDERED: LIDOCAINE HCL/PF 1% 2ML VIAL ONE (13:43)
[2017-10-05] MEDS ORDERED: HYDROCODONE/ACETAMINOPHEN 10/325MG TABLET PO NR (16:45)
[2017-10-05] MEDS ORDERED: LORAZEPAM 2MG/ML CPJ IV PRN (16:45)
[2017-10-05] MEDS ORDERED: HYDROCODONE/ACETAMINOPHEN 10/325MG TABLET NG PRN (16:45)
[2017-10-06 13:25] LABS: PLATELET ESTIMATE NORMAL
== END 2017-10-05 19:45 | DRG 4 ==
LOC: ER 13:34 → EDBEDREQ 15:49 → 6WST 19:55 → ENRESERV 19:55 → 6WST 22:53 → MICUSO 09-17 17:10
PROVIDERS: ADMIT Internal Medicine Pulmonary Disease; ATTEND Internal Medicine Pulmonary Disease
PROC: 5A1955Z Respiratory Ventilation, Greater than 96 Consecutive Hours (ICD-10-PCS; principal; 2017-09-17)
PROC: 0BH17EZ Insertion of Endotracheal Airway into Trachea, Via Natural or Artificial Opening (ICD-10-PCS; 2017-09-17)
PROC: 5A1D70Z Performance of Urinary Filtration, Intermittent, Less than 6 Hours Per Day (ICD-10-PCS; 2017-09-17)
PROC: 05HY33Z Insertion of Infusion Device into Upper Vein, Percutaneous Approach (ICD-10-PCS; 2017-09-18)
PROC: 5A1D70Z Performance of Urinary Filtration, Intermittent, Less than 6 Hours Per Day (ICD-10-PCS; 2017-09-19)
PROC: 5A1D70Z Performance of Urinary Filtration, Intermittent, Less than 6 Hours Per Day (ICD-10-PCS; 2017-09-20)
PROC: 5A1D70Z Performance of Urinary Filtration, Intermittent, Less than 6 Hours Per Day (ICD-10-PCS; 2017-09-22)
PROC: 5A12012 Performance of Cardiac Output, Single, Manual (ICD-10-PCS; 2017-09-24)
PROC: 0BH17EZ Insertion of Endotracheal Airway into Trachea, Via Natural or Artificial Opening (ICD-10-PCS; 2017-09-24)
PROC: 5A09357 Assistance with Respiratory Ventilation, Less than 24 Consecutive Hours, Continuous Positive Airway Pressure (ICD-10-PCS; 2017-09-24)
PROC: 5A1D70Z Performance of Urinary Filtration, Intermittent, Less than 6 Hours Per Day (ICD-10-PCS; 2017-09-24)
PROC: 5A1D70Z Performance of Urinary Filtration, Intermittent, Less than 6 Hours Per Day (ICD-10-PCS; 2017-09-26)
PROC: 30233N1 Transfusion of Nonautologous Red Blood Cells into Peripheral Vein, Percutaneous Approach (ICD-10-PCS; 2017-09-26)
PROC: 5A1D70Z Performance of Urinary Filtration, Intermittent, Less than 6 Hours Per Day (ICD-10-PCS; 2017-09-28)
PROC: 5A1D70Z Performance of Urinary Filtration, Intermittent, Less than 6 Hours Per Day (ICD-10-PCS; 2017-09-30)
PROC: 5A1D70Z Performance of Urinary Filtration, Intermittent, Less than 6 Hours Per Day (ICD-10-PCS; 2017-10-01)
PROC: 5A1D70Z Performance of Urinary Filtration, Intermittent, Less than 6 Hours Per Day (ICD-10-PCS; 2017-10-02)
PROC: 0B110F4 Bypass Trachea to Cutaneous with Tracheostomy Device, Open Approach (ICD-10-PCS; 2017-10-03)
PROC: 5A1D70Z Performance of Urinary Filtration, Intermittent, Less than 6 Hours Per Day (ICD-10-PCS; 2017-10-04)
DX: A41.9 Sepsis, unspecified organism (principal); R65.21 Severe sepsis with septic shock; J18.9 Pneumonia, unspecified organism; L89.150 Pressure ulcer of sacral region, unstageable; I13.0 Hypertensive heart and chronic kidney disease with heart failure and stage 1 through stage 4 chronic kidney disease, or unspecified chronic kidney disease; E87.2 Acidosis; N18.4 Chronic kidney disease, stage 4 (severe); N17.9 Acute kidney failure, unspecified; E87.5 Hyperkalemia; I50.32 Chronic diastolic (congestive) heart failure; I27.29 Other secondary pulmonary hypertension; I46.9 Cardiac arrest, cause unspecified; J96.01 Acute respiratory failure with hypoxia; E44.1 Mild protein-calorie malnutrition; I48.92 Unspecified atrial flutter; N25.81 Secondary hyperparathyroidism of renal origin; I47.1 Supraventricular tachycardia; J44.1 Chronic obstructive pulmonary disease with (acute) exacerbation; J44.0 Chronic obstructive pulmonary disease with (acute) lower respiratory infection; J45.901 Unspecified asthma with (acute) exacerbation; Z99.11 Dependence on respirator [ventilator] status; I48.91 Unspecified atrial fibrillation; I08.3 Combined rheumatic disorders of mitral, aortic and tricuspid valves; D63.1 Anemia in chronic kidney disease; M19.90 Unspecified osteoarthritis, unspecified site; M48.061 Spinal stenosis, lumbar region without neurogenic claudication; I87.2 Venous insufficiency (chronic) (peripheral); M10.9 Gout, unspecified; E66.9 Obesity, unspecified; E78.00 Pure hypercholesterolemia, unspecified; E78.5 Hyperlipidemia, unspecified; E87.6 Hypokalemia; G89.4 Chronic pain syndrome; I25.10 Atherosclerotic heart disease of native coronary artery without angina pectoris; W18.39XA Other fall on same level, initial encounter; I73.9 Peripheral vascular disease, unspecified; Z96.1 Presence of intraocular lens; K21.9 Gastro-esophageal reflux disease without esophagitis; K59.00 Constipation, unspecified; M81.0 Age-related osteoporosis without current pathological fracture; Z79.899 Other long term (current) drug therapy; Z87.891 Personal history of nicotine dependence; Z90.710 Acquired absence of both cervix and uterus; Z98.41 Cataract extraction status, right eye; Z98.42 Cataract extraction status, left eye; Z99.2 Dependence on renal dialysis; Y93.89 Activity, other specified; Y92.89 Other specified places as the place of occurrence of the external cause; Y99.8 Other external cause status; Z88.6 Allergy status to analgesic agent; Z88.8 Allergy status to other drugs, medicaments and biological substances; Z68.33 Body mass index [BMI] 33.0-33.9, adult
CPT/HCPCS: 36415; 36569; 36600; 71045; 76937; 80048; 80053; 80202; 82270; 82375; 82550; 82553; 82570; 82805; 82962; 83540; 83550; 83735; 83880; 83935; 83970; 84100; 84132; 84133; 84300; 84439; 84443; 84480; 84484; 84550; 85014; 85018; 85025; 85027; 85610; 86850; 86900; 86920; 87070; 92610; 92950; 93005; 93306; 94002; 94003; 94640; 94660; 96360; 96361; 97162; 97163; 99285; A6261; C1752; C1769; C1893; J0330; J0461; J0885; J1644; J1940; J2060; J2250; J2270; J2370; J2405; J2543; J2704; J2920; J3010; J3370; J3490; J7030; J7040; J7042; J7050; J7060; J7611; J7620; J8597; P9016